=== PATIENT | male | born 1955 | race Caucasian/White ===

== ENCOUNTER → 2016-06-17 09:31 | Outpatient (CLI) | payer MEDICARE, OTHER ==
[2013-03-30 10:21] VITALS: BMI 36.5
[~2016-06-17 09:31] MED LIST: AVODART0.5 MG; CYMBALTA60 MG PO; ENDOCET 10-3251 TAB PO; FLOMAX0.4 MG PO; LIBRAX CAPSULE1 CAP PO; LOPRESSOR50 MG PO; MICARDIS HCT 81 EACH PO; MYSOLINE250 MG PO; NORVASC10 MG PO; PROZAC20 MG PO; SKELAXIN800 MG PO; SOMA350 MG PO; TESSALON PERLE100 MG PO; TOPROL XL50 MG PO; VENTOLIN HFA18 GM INH; VITAMIN D250000 UNIT PO
== END | disposition home or self-care (01) ==
LOC: D.CT 09:31
DX: R91.1 Solitary pulmonary nodule (principal)

== ENCOUNTER 2016-10-31 | Emergency (ER) | payer MEDICARE, OTHER ==
[2013-03-30 10:21] VITALS: BMI 36.5
== END 2016-10-31 01:10 | disposition home or self-care (01) ==
LOC: D.ER
DX: F10.129 Alcohol abuse with intoxication, unspecified (principal); F91.8 Other conduct disorders; F17.200 Nicotine dependence, unspecified, uncomplicated; I10 Essential (primary) hypertension

== ENCOUNTER 2016-11-05 22:21 | Observation (INO) | payer MEDICARE, OTHER ==
[~2016-11-05] VITALS: Ht 172.7 cm; Wt 120.5 kg
[2016-11-05 22:52] LABS: BASOPHILS 0.2 % (0-2); EOSINOPHILS 1.6 % (0-7); HEMATOCRIT 42.7 % (42.0-54.0); HEMOGLOBIN 14.7 g/dL (13.5-17.5); LYMPHOCYTES 40.2 % (15-50); MCH 36.5 pg (26.0-34.0); MCHC 34.4 g/dL (31.0-37.0); MONOCYTES 8.3 % (2-11); NEUTROPHILS 49.7 % (40-80); PLATELET COUNT 140 10x3/uL (130-400); RBC 4.03 10x6/uL (4.20-6.10); RDW 12.8 % (11.5-14.5); WBC 6.3 10x3/uL (4.8-10.8)
[2016-11-05 23:06] LABS: ALBUMIN 3.3 g/dL (3.4-5.0); ALKALINE PHOSPHATASE 79 U/L (46-116); ALT (SGPT) 75 U/L (10-68); BILIRUBIN - TOTAL 0.44 mg/dL (0.2-1.3); CALC OSMOLALITY 277 mosm/kg (275-300); CALCIUM 8.6 mg/dL (8.5-10.1); CARBON DIOXIDE 25.9 mmol/L (21.0-32.0); CHLORIDE - SERUM 103 mmol/L (98-107); CREATININE - SERUM 0.8 mg/dL (0.6-1.3); GLUCOSE 113 mg/dL (74-106); POTASSIUM - SERUM 3.1 mmol/L (3.5-5.1); PROTEIN - SERUM 6.9 g/dL (6.4-8.2); SODIUM 140 mmol/L (136-145); UREA NITROGEN 8 mg/dL (7-18); eGFR NON AFRICAN AMERICAN > 90 mL/min (90-120)
[2016-11-05 23:16] LABS: CKMB 1.1 U/L (0.0-3.6); CREATINE KINASE 111 UL (21-232)
[2016-11-05 23:17] LABS: TROPONIN-I < 0.017 ng/mL (0.000-0.060)
[2016-11-06] MEDS ORDERED: JALYN 0.5-0.41 EACH PO (02:09)
[2016-11-06] MEDS ORDERED: AZOR 10-40 MG T1 TAB PO (02:10)
[2016-11-06] MEDS ORDERED: METOPROLOL TART50 MG PO (02:12)
[2016-11-06 02:16] VITALS: Ht 172.7 cm; Wt 120.5 kg
[2016-11-06 05:15] LABS: BASOPHILS 0.2 % (0-2); EOSINOPHILS 1.6 % (0-7); HEMATOCRIT 42.2 % (42.0-54.0); HEMOGLOBIN 14.5 g/dL (13.5-17.5); LYMPHOCYTES 40.5 % (15-50); MCH 36.5 pg (26.0-34.0); MCHC 34.4 g/dL (31.0-37.0); MCV 106.3 fL (80.0-100.0); MEAN PLATELET VOLUME 10.4 fL (7.4-10.4); MONOCYTES 9.5 % (2-11); NEUTROPHILS 48.2 % (40-80); PLATELET COUNT 128 10x3/uL (130-400); RBC 3.97 10x6/uL (4.20-6.10); RDW 12.8 % (11.5-14.5); WBC 4.3 10x3/uL (4.8-10.8)
[2016-11-06 05:34] LABS: CALC OSMOLALITY 284 mosm/kg (275-300); CALCIUM 8.2 mg/dL (8.5-10.1); CARBON DIOXIDE 28.4 mmol/L (21.0-32.0); CHLORIDE - SERUM 106 mmol/L (98-107); CREATINE KINASE 85 UL (21-232); CREATININE - SERUM 0.7 mg/dL (0.6-1.3); GLUCOSE 100 mg/dL (74-106); POTASSIUM - SERUM 3.3 mmol/L (3.5-5.1); SODIUM 144 mmol/L (136-145); TROPONIN-I < 0.017 ng/mL (0.000-0.060); UREA NITROGEN 7 mg/dL (7-18); eGFR NON AFRICAN AMERICAN > 90 mL/min (90-120)
--- NOTE | 2016-11-06 07:50 | NUR ---
ASSESSMENT COMPLETED. SLEEPING BUT AROUSES EASILY. TELEMERTY SHOWS SR 60. LEFT HAND SL. DENIES ANY NEEDS. CALL LIGHT IN REACH WITH SR UP
[2016-11-06 09:01] VITALS: BP 153/70
--- NOTE | 2016-11-06 10:31 | NUR ---
PATIENT LAYING FLAT WITH EYES CLOSED. RESP ARE EVEN AND NON LABORED, AROUSES EASILY WHEN SPOKEN TO. WILL MONITOR.
--- NOTE | 2016-11-06 11:41 | NUR ---
UP IN HALLWAY. WANTING TO GO HOME. DENIES ANY NEED. TELEMERTY SHOWS SR. WILL MONITOR
[2016-11-06 11:46] VITALS: BP 162/94
--- NOTE | 2016-11-06 14:55 | NUR ---
PT DISCHARGED.INSTRUCTIONS GIVEN. I TOLD PT TO STAY HERE UNTILL HIS CAN PICK HIM UP. HE STATED NO THAT HE WAS LEAVING.i TRIED TO PERSUADE HIM TO STAY BUT AGAIN HE REUSED. NA WALKED PT OUTSIDE AND TRIED TO GET PT TO STAY INSIDE OR SIT ON BENCH IN SHADE AND WAIT FOR HIS FAMILY BUT HE REFUSED. CHARGE NURSE NOTIFIED AND SHE CALLED HOUSE SUPERVISIOR.
== END 2016-11-06 14:50 | disposition home or self-care (01) ==
LOC: D.ER 22:21 → OBSVTIME 23:25 → D.M2 23:25
PROVIDERS: Family Medicine; ADMIT Family Medicine Adult Medicine
DX: R07.9 Chest pain, unspecified (principal); F10.129 Alcohol abuse with intoxication, unspecified; Y90.6 Blood alcohol level of 120-199 mg/100 ml; I10 Essential (primary) hypertension; I73.9 Peripheral vascular disease, unspecified; F41.9 Anxiety disorder, unspecified; F32.9 Major depressive disorder, single episode, unspecified; Z72.0 Tobacco use

== ENCOUNTER 2017-01-15 05:31 | Emergency (ER) | payer MEDICARE, OTHER ==
[2016-11-06 02:16] VITALS: BMI 40.3
[~2017-01-15 05:31] MED LIST changes: +AZOR 10-40 MG T1 TAB PO; +JALYN 0.5-0.41 EACH PO; +METOPROLOL TART50 MG PO
== END 2017-01-15 06:30 | disposition home or self-care (01) ==
LOC: D.ER 05:31
DX: S20.211A Contusion of right front wall of thorax, initial encounter (principal); W19.XXXA Unspecified fall, initial encounter; Y93.89 Activity, other specified; Y92.89 Other specified places as the place of occurrence of the external cause

== ENCOUNTER 2017-06-29 15:28 | Emergency (ER) | payer MEDICARE, OTHER ==
[2016-11-06 02:16] VITALS: BMI 40.3
[2017-06-29 16:42] LABS: ALBUMIN 3.4 g/dL (3.4-5.0); ALKALINE PHOSPHATASE 54 U/L (46-116); ALT (SGPT) 11 U/L (10-68); BILIRUBIN - TOTAL 0.77 mg/dL (0.2-1.3); CALC OSMOLALITY 278 mosm/kg (275-300); CALCIUM 8.2 mg/dL (8.5-10.1); CARBON DIOXIDE 27.7 mmol/L (21.0-32.0); CHLORIDE - SERUM 104 mmol/L (98-107); CREATININE - SERUM 0.7 mg/dL (0.6-1.3); GLUCOSE 82 mg/dL (74-106); POTASSIUM - SERUM 3.8 mmol/L (3.5-5.1); PROTEIN - SERUM 6.6 g/dL (6.4-8.2); SODIUM 141 mmol/L (136-145); UREA NITROGEN 10 mg/dL (7-18); eGFR NON AFRICAN AMERICAN > 90 mL/min (90-120)
[2017-06-29 17:01] LABS: APPEARANCE CLEAR (CLEAR); BILIRUBIN NEGATIVE (NEGATIVE); COLOR STRAW (YELLOW); GLUCOSE NEGATIVE (NEGATIVE); KETONE NEGATIVE (NEGATIVE); NITRITE NEGATIVE (NEGATIVE); PROTEIN NEGATIVE (NEGATIVE); SPECIFIC GRAVITY 1.005 (1.005-1.020); UROBILINOGEN NORMAL (NORMAL)
[2017-06-29 17:02] LABS: BACTERIA FEW /hpf (NONE SEEN); EPITHELIAL CELLS 0-5 /hpf (0-5)
[2017-06-29 17:19] LABS: BASOPHILS 0.3 % (0-2); EOSINOPHILS 0.9 % (0-7); HEMATOCRIT 42.6 % (42.0-54.0); HEMOGLOBIN 14.8 g/dL (13.5-17.5); IMMATURE GRANULOCYTES 0.1 % (0-5); LYMPHOCYTES 25.3 % (15-50); MCH 34.2 pg (26.0-34.0); MCHC 34.7 g/dL (31.0-37.0); MCV 98.4 fL (80.0-100.0); MEAN PLATELET VOLUME 9.7 fL (7.4-10.4); MONOCYTES 9.1 % (2-11); NEUTROPHILS 64.3 % (40-80); PLATELET COUNT 171 10x3/uL (130-400); RBC 4.33 10x6/uL (4.20-6.10); RDW 13.7 % (11.5-14.5)
[2017-06-29 17:22] LABS: UDS - AMPHET NEGATIVE QUAL (NEGATIVE); UDS - BARB NEGATIVE QUAL (NEGATIVE); UDS - BENZO POSITIVE QUAL (NEGATIVE); UDS - COCAINE NEGATIVE QUAL (NEGATIVE); UDS - OPIATE NEGATIVE QUAL (NEGATIVE); UDS - PCP NEGATIVE QUAL (NEGATIVE); UDS - THC NEGATIVE QUAL (NEGATIVE)
== END 2017-06-30 00:15 | disposition home or self-care (01) ==
LOC: D.ER 15:28
PROVIDERS: Emergency Medicine
DX: F33.9 Major depressive disorder, recurrent, unspecified (principal); F10.10 Alcohol abuse, uncomplicated; R45.851 Suicidal ideations; F17.200 Nicotine dependence, unspecified, uncomplicated

== ENCOUNTER 2017-07-23 07:22 | Emergency (ER) | payer MEDICARE, OTHER ==
[2016-11-06 02:16] VITALS: BMI 40.3
[2017-07-23 07:54] LABS: BASOPHILS 0.1 % (0-2); EOSINOPHILS 0.2 % (0-7); HEMATOCRIT 43.9 % (42.0-54.0); HEMOGLOBIN 15.1 g/dL (13.5-17.5); IMMATURE GRANULOCYTES 0.1 % (0-5); MCHC 34.4 g/dL (31.0-37.0); MCV 101.9 fL (80.0-100.0); MEAN PLATELET VOLUME 9.5 fL (7.4-10.4); MONOCYTES 8.2 % (2-11); NEUTROPHILS 81.4 % (40-80); PLATELET COUNT 149 10x3/uL (130-400); RBC 4.31 10x6/uL (4.20-6.10); RDW 14.5 % (11.5-14.5); WBC 11.1 10x3/uL (4.8-10.8)
[2017-07-23 08:10] LABS: ALBUMIN 3.6 g/dL (3.4-5.0); ALKALINE PHOSPHATASE 64 U/L (46-116); ALT (SGPT) 12 U/L (10-68); BILIRUBIN - TOTAL 0.36 mg/dL (0.2-1.3); CALC OSMOLALITY 279 mosm/kg (275-300); CALCIUM 8.5 mg/dL (8.5-10.1); CARBON DIOXIDE 26.6 mmol/L (21.0-32.0); CHLORIDE - SERUM 103 mmol/L (98-107); GLUCOSE 102 mg/dL (74-106); PROTEIN - SERUM 7.5 g/dL (6.4-8.2); SODIUM 140 mmol/L (136-145); UREA NITROGEN 14 mg/dL (7-18); eGFR NON AFRICAN AMERICAN 80 mL/min (90-120)
[2017-07-23 08:12] LABS: ACETAMINOPHEN 23.4 ug/mL (10.0-30.0)
[2017-07-23 10:15] LABS: UDS - AMPHET NEGATIVE QUAL (NEGATIVE); UDS - BARB NEGATIVE QUAL (NEGATIVE); UDS - BENZO POSITIVE QUAL (NEGATIVE); UDS - COCAINE NEGATIVE QUAL (NEGATIVE); UDS - OPIATE POSITIVE QUAL (NEGATIVE); UDS - PCP NEGATIVE QUAL (NEGATIVE); UDS - THC NEGATIVE QUAL (NEGATIVE)
== END 2017-07-23 10:30 | disposition short-term general hospital (02) ==
LOC: D.ER 07:22
PROVIDERS: Family Medicine
DX: T14.91XA Suicide attempt, initial encounter (principal); T39.1X2A Poisoning by 4-Aminophenol derivatives, intentional self-harm, initial encounter; Y92.019 Unspecified place in single-family (private) house as the place of occurrence of the external cause; Y93.89 Activity, other specified; F10.129 Alcohol abuse with intoxication, unspecified

== ENCOUNTER 2018-06-01 09:01 | Inpatient (IN) | payer MEDICARE, OTHER ==
[~2018-06-01] VITALS: Ht 172.7 cm; Wt 111.4 kg
[2018-06-01 10:26] LABS: ALBUMIN 3.1 g/dL (3.4-5.0); ALKALINE PHOSPHATASE 85 U/L (46-116); ALT (SGPT) 28 U/L (10-68); APTT 29.6 SECONDS (22.8-39.4); BILIRUBIN - TOTAL 1.18 mg/dL (0.2-1.3); CALC OSMOLALITY 276 mosm/kg (275-300); CARBON DIOXIDE 26.4 mmol/L (21.0-32.0); CHLORIDE - SERUM 102 mmol/L (98-107); CREATININE - SERUM 0.6 mg/dL (0.6-1.3); GLUCOSE 101 mg/dL (74-106); HEMATOCRIT 39.5 % (42.0-54.0); HEMOGLOBIN 14.1 g/dL (13.5-17.5); INR 1.12 (0.85-1.17); LYMPHOCYTES 16.3 % (15-50); MCH 38.1 pg (26.0-34.0); MCHC 35.7 g/dL (31.0-37.0); MCV 106.8 fL (80.0-100.0); MEAN PLATELET VOLUME 8.8 fL (7.4-10.4); NEUTROPHILS 79.5 % (40-80); PLATELET COUNT 142 10x3/uL (130-400); POTASSIUM - SERUM 3.5 mmol/L (3.5-5.1); PROTEIN - SERUM 6.9 g/dL (6.4-8.2); PROTIME 13.9 SECONDS (11.6-15.0); RDW 14.2 % (11.5-14.5); SODIUM 140 mmol/L (136-145); UREA NITROGEN 8 mg/dL (7-18); WBC 7.6 10x3/uL (4.8-10.8); eGFR NON AFRICAN AMERICAN > 90 mL/min (90-120)
--- NOTE | 2018-06-01 12:09 | MORECARE ---
CASE MANAGEMENT DISCHARGE SUMMARY PATIENT: DANIEL DAVE UNIT: [id number] ADM DATE: 06/01/18 AGE: 63 : 55 SEX: M ROOM/BED: D.2234 AUTHOR: TEAGAN CASTAÑEDA PHYSICIAN: REFERRING PHYSICIAN: DIANE YOUNG MD DATE OF SERVICE: 06/01/18 Discharge Plan Patient Name: DANIEL DAVE Facility: [facility]:[place] : 1955 Planned Disposition: Anticipated Discharge Date: 06/03/18 Discharge Date: Expected LOS: 2 Initial Reviewer: [email or web address] Initial Review Date: 06/01/2018 Generated: 06/01/18 1:09 pm DCP- Discharge Planning Updated by [email or web address]: Ines Mehta on 06/01/18 11:[address] Patient Name: DANIEL DAVE Admission Status: ER Accout number: [id number] Admission Date: 06-01-2018 : 1955 Admission Diagnosis: Attending: DIANE YOUNG Current LOS: 1 Anticipated DC Date: 06-03-2018 Planned Disposition: Primary Insurance: MEDICARE A & B Discharge Planning Comments: CM met with patient and his son to complete initial dc planning assessment. CM educated patient on the CM role and verbal consent given by patient to complete assessment. Patient lives at home with his . He reports he is mostly independent in his care but sometimes needs assistance putting on his socks and dressing. At discharge patient plans to return home if able and feels this is a safe discharge. CM discussed availability of home health, rehab services, and medical equipment. Patient unsure what discharge needs he will have at this time. CM will continue to follow and will assist as needed with dc plans/needs. Stock Sorter: Ines Mehta RN, [facility] DCPIA - Discharge Planning Initial Assessment Updated by [email or web address]: Ines Mehat on 06/01/18 12:06 pm * Is the patient Alert and Oriented? Yes * How many steps to enter\exit or inside your home? one * PCP Dr. Milan Ramirez * Pharmacy [facility] * Preadmission Environment Home with Family * ADLs Partial Dependent * Partial ADLs (Assistance needed) Dressing * Equipment Rolling Walker * List name and contact numbers for known caregivers / representatives who currently or will assist patient after discharge: Dougie Dave - son - [phone] Jacy Dave - - [phone] or [phone] * Verbal permission to speak to the caregivers and representatives has been obtained from the patient. Yes * Community resources currently utilized None * Additional services required to return to the preadmission environment? Yes * Can the patient safely return to the preadmission environment? Yes * Has this patient been hospitalized within the prior 30 days at any hospital? No Patient Name: DANIEL DAVE Page 39610 at 1209 All edits/amendments must be made on the electronic document DICTATION DATE: 06/01/181207 LAYDOWN MACHINE OPERATOR: JORDI 06/01/181207 RPT#: [id number] DC DATE: STATUS: ADM IN [facility] [address] [place] [address] END OF REPORT
[2018-06-01 12:40] VITALS: BP 166/79
[2018-06-01 15:34] VITALS: BP 143/61; Ht 172.7 cm; Wt 111.4 kg
[2018-06-01 16:26] VITALS: BP 143/61
[2018-06-01 20:29] VITALS: BP 145/77
[2018-06-02] VITALS (7 sets, daily range): BP systolic 133–156; BP diastolic 52–90
[2018-06-02 05:33] LABS: ALBUMIN 2.6 g/dL (3.4-5.0); ALKALINE PHOSPHATASE 74 U/L (46-116); BILIRUBIN - TOTAL 1.25 mg/dL (0.2-1.3); CALC OSMOLALITY 270 mosm/kg (275-300); CALCIUM 7.2 mg/dL (8.5-10.1); CARBON DIOXIDE 28.2 mmol/L (21.0-32.0); CHLORIDE - SERUM 101 mmol/L (98-107); GLUCOSE 92 mg/dL (74-106); MAGNESIUM - SERUM 1.9 mg/dL (1.8-2.4); PROTEIN - SERUM 5.8 g/dL (6.4-8.2); SODIUM 136 mmol/L (136-145); UREA NITROGEN 10 mg/dL (7-18)
[2018-06-02 05:37] LABS: BASOPHILS 0 % (0-2); HEMATOCRIT 35.8 % (42.0-54.0); HEMOGLOBIN 12.5 g/dL (13.5-17.5); LYMPHOCYTES 17.4 % (15-50); MCH 37.5 pg (26.0-34.0); MCHC 34.9 g/dL (31.0-37.0); MCV 107.5 fL (80.0-100.0); MEAN PLATELET VOLUME 9.8 fL (7.4-10.4); MONOCYTES 6.3 % (2-11); NEUTROPHILS 75.3 % (40-80); PLATELET COUNT 133 10x3/uL (130-400); RBC 3.33 10x6/uL (4.20-6.10); RDW 13.9 % (11.5-14.5)
[2018-06-02 05:41] LABS: ALT (SGPT) 20 U/L (10-68); CREATININE - SERUM 0.8 mg/dL (0.6-1.3); eGFR NON AFRICAN AMERICAN > 90 mL/min (90-120)
[2018-06-02 05:56] LABS: WBC 4.8 10x3/uL (4.8-10.8)
[2018-06-03 06:33] LABS: BASOPHILS 0 % (0-2); EOSINOPHILS 0.1 % (0-7); HEMOGLOBIN 12.1 g/dL (13.5-17.5); IMMATURE GRANULOCYTES 0.1 % (0-5); LYMPHOCYTES 7.9 % (15-50); MCH 37.2 pg (26.0-34.0); MCHC 34.6 g/dL (31.0-37.0); MCV 107.7 fL (80.0-100.0); MEAN PLATELET VOLUME 9.6 fL (7.4-10.4); MONOCYTES 3.6 % (2-11); NEUTROPHILS 88.3 % (40-80); PLATELET COUNT 142 10x3/uL (130-400); RBC 3.25 10x6/uL (4.20-6.10); RDW 13.8 % (11.5-14.5)
[2018-06-03 07:11] LABS: ALBUMIN 2.4 g/dL (3.4-5.0); ALKALINE PHOSPHATASE 75 U/L (46-116); ALT (SGPT) 17 U/L (10-68); BILIRUBIN - TOTAL 0.85 mg/dL (0.2-1.3); CALCIUM 7.2 mg/dL (8.5-10.1); CARBON DIOXIDE 26.5 mmol/L (21.0-32.0); CHLORIDE - SERUM 101 mmol/L (98-107); GLUCOSE 117 mg/dL (74-106); MAGNESIUM - SERUM 2.1 mg/dL (1.8-2.4); POTASSIUM - SERUM 3.3 mmol/L (3.5-5.1); PROTEIN - SERUM 5.9 g/dL (6.4-8.2); SODIUM 136 mmol/L (136-145)
[2018-06-03 07:13] LABS: CALC OSMOLALITY 270 mosm/kg (275-300); CREATININE - SERUM 0.5 mg/dL (0.6-1.3); UREA NITROGEN 6 mg/dL (7-18); eGFR NON AFRICAN AMERICAN > 90 mL/min (90-120)
--- NOTE | 2018-06-03 08:40 | OP ---
PATIENT NAME: DANIEL DAVE MEDICAL RECORD: [id number] :[birth year] LOCATION:D.MS [id number] ADMISSION DATE:06/01/18 SURGEON: MONTRELL PATEL DO DATE OF OPERATION: 06/02/2018 PROCEDURE PERFORMED: Left distal fibula open reduction internal fixation. PREOPERATIVE DIAGNOSIS: Displaced left distal fibula fracture, ankle fracture. POSTOPERATIVE DIAGNOSES: Displaced left distal fibula fracture, ankle fracture. INDICATIONS: Mr. Dave is a 63-year-old alcoholic male who fell a couple of days ago, was taken to the ER, seemed to have a displaced distal fibula fracture. He was unable to bear weight and he got admitted. He admits to drinking all the whiskey every day he says and falls frequently. I explained to him that this ankle would not heal, well on its own and it is already displaced and we would have to fix. He was aware of the risks and benefits of the procedure including infection, bleeding, damage to nerves and vessels, need for further surgery, and he fell again need for revision. He is aware of that. Consented to the procedure. SURGEON: Montrell Patel DO DESCRIPTION OF THE PROCEDURE: The patient was given a block by anesthesia in the preoperative area and taken to the operative suite, laid in supine position, given 2 grams Ancef preoperatively. A timeout was performed and everyone was in agreement with the correct side, site, patient, and procedure. The left lower extremity was then prepped and draped in a sterile fashion. After the time out had been performed, the left lower extremity was exsanguinated with an Esmarch and the tourniquet was inflated to 350 mmHg and was up for 35 minutes throughout the procedure. The incision then began over the fibula in the lateral side and a careful dissection was made down to it. Fracture was exposed. There was quite a bit large hematoma there. This was removed with a curette and a reduction maneuver was made. Once the reduction was adequate, Arthrex locking plate was placed on the fibula, placed into position, and this was confirmed in good position on AP and lateral. First distal locking screws were placed and then locking screws were placed proximally holding the reduction nicely. It did have a fracture fixation, did put a TightRope through, this was done under fluoroscopy as well as to cinch down due to the fact that he may fall again. This had good fixation and ankle was very stable stressed on exam and did not move. The tourniquet was then let down and any bleeding was coagulated. He did ooze quite a bit and there were no vessels, but it was oozing. The skin was then closed with 2-0 Vicryl in inverted interrupted fashion and a ZipLine was placed on the skin, Adaptic, 4 x 4s and ABD were then placed over the incision site and then an ABD was placed on the heel. Then, a 2 x 2 dressing of Kerlix and Webril was placed on the patient. A posterior splint was placed on him and it was secured in place with a 6-inch and 4-inch Yang wrap then held while it hardened. He was then awakened and taken to recovery in stable condition. Blood loss approximately 100 mL. COMPLICATIONS: None. TRANSINT:[id number] Voice Confirmation ID: [id number] DOCUMENT ID: [id number] OPERATIVE REPORT [id number] DANIEL DAVE MICHAEL D, DO at 0840 CC: [id number] DICTATION DATE: 06/02/181951 ARC AIR OPERATOR: 06/03/18 0220 ADM IN [facility] [address] [place] [address]
[2018-06-03 09:00] VITALS: BP 173/88
[2018-06-03] MEDS ORDERED: OXYCODONE HCL5 M1 PO (10:34)
[2018-06-03] MEDS ORDERED: ASPIRIN81 MG PO (10:59)
[2018-06-03 12:00] VITALS: BP 155/82
--- NOTE | 2018-06-03 15:01 | MORECARE ---
CASE MANAGEMENT DISCHARGE SUMMARY PATIENT: DANIEL DAVE UNIT: [id number] ADM DATE: 06/01/18 AGE: 63 : 55 SEX: M ROOM/BED: D.2234 AUTHOR: TEAGAN CASTAÑEDA PHYSICIAN: REFERRING PHYSICIAN: DIANE YOUNG MD DATE OF SERVICE: 06/03/18 Discharge Plan Patient Name: DANIEL DAVE Facility: [facility]:[place] : 1955 Planned Disposition: Anticipated Discharge Date: 06/03/18 Discharge Date: Expected LOS: 2 Initial Reviewer: [email or web address] Initial Review Date: 06/01/2018 Generated: 06/03/18 4:01 pm Comments DCP- Discharge Planning Updated by [email or web address]: Zoe Camp on 06/03/18 1:[address] LATE ENTRY 1215 CM NOTIFIED PATIENT'S STATES SHE CANNOT MANAGE HIM AT HOME. CM ADVISED NURSE TO NOTIFY MD. ?? REHAB . WILL NEED OT AND PT CONSULTS W/ REHAB PRESCREENING. CONCERN REGARDING POSSIBLE DT'S. CONTINUE DT PRECAUTION. AWAIT PRESCREENING. DCP- Discharge Planning Updated by [email or web address]: Ines Mehta on 06/01/18 11:[address] Patient Name: DANIEL DAVE Admission Status: ER Accout number: [id number] Admission Date: 06-01-2018 : 1955 Admission Diagnosis: Attending: DIANE YOUNG Current LOS: 1 Anticipated DC Date: 06-03-2018 Planned Disposition: Primary Insurance: MEDICARE A & B Discharge Planning Comments: CM met with patient and his son to complete initial dc planning assessment. CM educated patient on the CM role and verbal consent given by patient to complete assessment. Patient lives at home with his . He reports he is mostly independent in his care but sometimes needs assistance putting on his socks and dressing. At discharge patient plans to return home if able and feels this is a safe discharge. CM discussed availability of home health, rehab services, and medical equipment. Patient unsure what discharge needs he will have at this time. CM will continue to follow and will assist as needed with dc plans/needs. Ict Security Specialist: Ines Mehta RN, [facility] DCPIA - Discharge Planning Initial Assessment Updated by [email or web address]: Ines Mehta on 06/01/18 12:06 pm * Is the patient Alert and Oriented? Yes * How many steps to enter\exit or inside your home? one * PCP Dr. Milan Ramirez * Pharmacy [facility] * Preadmission Environment Home with Family * ADLs Partial Dependent * Partial ADLs (Assistance needed) Dressing * Equipment Rolling Walker * List name and contact numbers for known caregivers / representatives who currently or will assist patient after discharge: Dougie Dave - son - [phone] Jacy Dave - - [phone] or [phone] * Verbal permission to speak to the caregivers and representatives has been obtained from the patient. Yes * Community resources currently utilized None * Additional services required to return to the preadmission environment? Yes * Can the patient safely return to the preadmission environment? Yes * Has this patient been hospitalized within the prior 30 days at any hospital? No Last DP export: 06/01/18 11:09 a Patient Name: DANIEL DAVE Page [phone] at 1501 All edits/amendments must be made on the electronic document DICTATION DATE: 06/03/18 1500 BRAKE LINING CURER: JORDI 06/03/18 1500 RPT#: [id number] DC DATE: STATUS: ADM IN [facility] [address] [place] [address] END OF REPORT
[2018-06-03 16:00] VITALS: BP 142/84
[2018-06-03 20:04] VITALS: BP 165/86
== END 2018-06-03 21:00 | DRG 493 ==
LOC: D.ER 09:01 → D.MS 10:34 → D.EDHOLD 10:34 → D.MS 10:36
PROVIDERS: Family Medicine; Orthopaedic Surgery; ADMIT Emergency Medicine
PROC: 0QSH04Z Reposition Left Tibia with Internal Fixation Device, Open Approach (ICD-10-PCS; principal; 2018-06-02 13:45)
DX: S82.302A Unspecified fracture of lower end of left tibia, initial encounter for closed fracture (principal); F17.213 Nicotine dependence, cigarettes, with withdrawal; I10 Essential (primary) hypertension; I70.209 Unspecified atherosclerosis of native arteries of extremities, unspecified extremity; F10.229 Alcohol dependence with intoxication, unspecified

== ENCOUNTER 2018-06-03 19:38 | Inpatient (IN) | payer MEDICARE, OTHER ==
[~2018-06-03] VITALS: Ht 172.7 cm; Wt 111.1 kg
[~2018-06-03 19:38] MED LIST changes: +ASPIRIN81 MG PO; +OXYCODONE HCL5 M1 PO
[2018-06-03 20:00] VITALS: BP 162/83
--- NOTE | 2018-06-03 21:10 | NUR ---
PT ARRIVED TO UNIT VIA BED PROPELLED BY 2 CNAS FROM MED SURG. ADMITTED TO ROOM [address] VALDEZ SERVICES. PT ORIENTED TO ROOM AND UNIT RULES WITH VERBAL UNDERSTANDING VOICED. VSS. LEFT LOWER EXT. HAS A LARGE BULKY SURGICAL DRESSING ON IT. NO DRAINAGE NOTED. SCD CONNECTED TO RLE. IV INFUSING TO RFA WITHOUT DIFFICULTY. NO REDNESS OR EDEMA NOTED AT THE INSERTION SITE. ADMIT PAPERS SIGNED. SR'S ARE UP X 3 IN BED. CALL LIGHT AND BEDSIDE TABLE ARE WITHIN EASY REACH.
[2018-06-03 21:54] VITALS: BP 162/83; BMI 37.3
--- NOTE | 2018-06-03 22:39 | NUR ---
PT IS RESTING IN BED WATCHING TV. NO NEEDS VOICED.
--- NOTE | 2018-06-04 01:04 | NUR ---
PT IS RESTING QUIETLY IN BED WITH EYES CLOSED. RESPS ARE EVEN AND UNLABORED. NO ACUTE DISTRESS NOTED.
--- NOTE | 2018-06-04 04:51 | NUR ---
PT RESTING QUIETLY IN BED WITH EYES CLOSED.
[2018-06-04 06:06] LABS: BASOPHILS 0.2 % (0-2); EOSINOPHILS 1.4 % (0-7); HEMATOCRIT 36.4 % (42.0-54.0); HEMOGLOBIN 12.3 g/dL (13.5-17.5); IMMATURE GRANULOCYTES 0.2 % (0-5); LYMPHOCYTES 21.2 % (15-50); MCHC 33.8 g/dL (31.0-37.0); MCV 109.6 fL (80.0-100.0); MEAN PLATELET VOLUME 9.8 fL (7.4-10.4); PLATELET COUNT 134 10x3/uL (130-400); RBC 3.32 10x6/uL (4.20-6.10); RDW 13.9 % (11.5-14.5); WBC 6.2 10x3/uL (4.8-10.8)
[2018-06-04 06:46] LABS: CALC OSMOLALITY 280 mosm/kg (275-300); CALCIUM 7.7 mg/dL (8.5-10.1); CHLORIDE - SERUM 105 mmol/L (98-107); CREATININE - SERUM 0.6 mg/dL (0.6-1.3); GLUCOSE 91 mg/dL (74-106); SODIUM 142 mmol/L (136-145); UREA NITROGEN 6 mg/dL (7-18); eGFR NON AFRICAN AMERICAN > 90 mL/min (90-120)
[2018-06-04 06:52] LABS: POTASSIUM - SERUM 2.9 mmol/L (3.5-5.1)
[2018-06-04 08:00] VITALS: BP 175/86
--- NOTE | 2018-06-04 08:00 | NUR ---
SHIFT ASSMT COMPLETED.DENIES NEEDS.USES URINAL AT BEDSIDE.DRSG TO LEFT LOWER LEG INTACT.SCD ON RLE.BREAKFAST GIVEN.CL IN REACH.MEAL PREP PROVIDED.
--- NOTE | 2018-06-04 12:00 | NUR ---
SITTING UP IN BED FOR LUNCH.CL IN REACH.
[2018-06-04 19:22] VITALS: BP 159/83
--- NOTE | 2018-06-04 19:42 | NUR ---
PATIENT IS RESTING IN HIS BED. VITALS SIGNS ARE STABLE. REQUESTING TO GET OUT OF BED. INFORMED HE MUST BE EVALUATED BY PT FIRST. VERBALIZES UNDERSTANDING. BED IS DOWN LOW WITH SIDE RAILS UP X2. CALL LIGHT IS IN REACH.
--- NOTE | 2018-06-04 21:11 | NUR ---
PATIENT IS RESTING IN HIS BED. BED IS DOWN LOW WITH SIDE RAILS UP X2. CALL LIGHT IS IN REACH.
--- NOTE | 2018-06-04 21:11 | NUR ---
PATIENT IS RESTING IN HER BED. DENIES [place] NEEDS. BED IS DOWN LOW WITH SIDE RAILS UP X2. BED ALARM ACTIVATED AND CALL LIGHT IN REACH.
--- NOTE | 2018-06-05 00:03 | NUR ---
PATIENT IS SLEEPING. BED IS DOWN LOW WITH SIDE RAILS UP X2. CALL LIGHT IS IN REACH.
--- NOTE | 2018-06-05 04:07 | NUR ---
PATIENT RESTING IN BED. STATES HIS PAIN LEVEL IS COMING DOWN. BED ID DOWN LOW WITH SIDE RAILS UP X2. CALL LIGHT IS IN REACH.
--- NOTE | 2018-06-05 07:30 | NUR ---
PT SITTING UP IN BED BREAKFAST DELIEVERED TO ROOM. CL IN REACH. PT DENIES NEEDS OR PAIN. BED IN LOW POSITION SIDE RAILS X2. RESP EVEN AND UNLABORED. WILL CONTINUE TO MONITOR.
[2018-06-05 07:32] LABS: BASOPHILS 0.2 % (0-2); EOSINOPHILS 2.3 % (0-7); HEMATOCRIT 34.5 % (42.0-54.0); HEMOGLOBIN 11.8 g/dL (13.5-17.5); IMMATURE GRANULOCYTES 0.2 % (0-5); LYMPHOCYTES 24.8 % (15-50); MCH 36.9 pg (26.0-34.0); MCHC 34.2 g/dL (31.0-37.0); MCV 107.8 fL (80.0-100.0); MEAN PLATELET VOLUME 9.6 fL (7.4-10.4); MONOCYTES 9.7 % (2-11); NEUTROPHILS 62.8 % (40-80); RDW 13.6 % (11.5-14.5); WBC 6.1 10x3/uL (4.8-10.8)
--- NOTE | 2018-06-05 07:43 | NUR ---
RESTING IN BED. NO DISTRESS. NO CHANGE IN ASSESSMENT.
[2018-06-05 07:50] LABS: CALC OSMOLALITY 271 mosm/kg (275-300); CALCIUM 7.6 mg/dL (8.5-10.1); CARBON DIOXIDE 28.3 mmol/L (21.0-32.0); CHLORIDE - SERUM 102 mmol/L (98-107); CREATININE - SERUM 0.7 mg/dL (0.6-1.3); GLUCOSE 93 mg/dL (74-106); POTASSIUM - SERUM 3.1 mmol/L (3.5-5.1); SODIUM 137 mmol/L (136-145); eGFR NON AFRICAN AMERICAN > 90 mL/min (90-120)
[2018-06-05 07:54] LABS: PLATELET COUNT 163 10x3/uL (130-400); UREA NITROGEN 8 mg/dL (7-18)
[2018-06-05 08:00] VITALS: BP 149/85
--- NOTE | 2018-06-05 08:50 | NUR ---
PT LYING IN BED. CL IN REACH. PT DENIES NEEDS OR PAIN. BED IN LOW POSITION. SIDE RAILS X2. BREAKFAST DELIEVERED IN ROOM. WILL CONTINUE TO MONITOR. RESP EVEN AND UNLABORED.
[2018-06-05 12:17] VITALS: BMI 37.2
--- NOTE | 2018-06-05 12:35 | NUR ---
PT SITTING UP IN WHEELCHAIR. CL IN REACH. PT DENIES NEEDS OR PAIN. LEFT LEG ELEVATED ON BED. PT DID HAVE BM ACCIDENT IN BED. STATED HE COULDNT GET UP DUE TO LEG PUMP BEING ATTACHED TO HIS LEG. PT WAS CLEANED UP BEFORE BEING PUT IN WHEELCHAIR. WILL CONTINUE TO MONITOR.
--- NOTE | 2018-06-05 16:33 | NUR ---
PT LYING IN BED RESTING QUIETLY. CL IN REACH. PT DENIES NEEDS OR PAIN. BED IN LOW POSITION. SIDE RAILS X2. BED ALARM ON. TM
--- NOTE | 2018-06-05 17:46 | NUR ---
PT RESTING QUIETLY. CL IN REACH. NO SIGNS OF DISTRESS OR PAIN. WCTM
--- NOTE | 2018-06-05 18:13 | NUR ---
WENT INTO PT ROOM DUE TO PT YELLING AND ASSISTED TO BATHROOM. PT WAS MAKING INAPPROPRIATE COMMENTS. ANOTHER RN NURSE WAS IN ROOM AT THIS TIME WITH THIS NURSE.
--- NOTE | 2018-06-05 18:39 | NUR ---
REMOVED PTS IV DUE TO NO MORE IV FLUIDS REQUIRED OR ANY IV ANTIBIOTICS.
--- NOTE | 2018-06-05 18:39 | NUR ---
PT TOLERATED IV REMOVING. CATH INTACT. MINIMAL BLEEDING. BANDAID APPLIED.
[2018-06-05 19:00] VITALS: BP 143/69
--- NOTE | 2018-06-05 19:02 | NUR ---
PATIENT IS RESTING IN HIS BED. BED IS DOWN LOW WITH SIDE RAILS UP X2. CALL LIGHT IS IN REACH.
--- NOTE | 2018-06-05 19:02 | NUR ---
PATIENT IS RESTING IN HER BED. DENIES ANY NEEDS. BED IS DOWN LOW WITH SIDE RAILS UP X2. BED ALARM ACTIVATED AND CALL LIGHT IN REACH.
--- NOTE | 2018-06-05 21:20 | NUR ---
PATIENT IS RESTING. VITALS SIGNS ARE STABLE. BED IS DOWN LOW WITH SIDE RAILS ARE X2. CALL LIGHT IS IN REACH.
--- NOTE | 2018-06-05 21:20 | NUR ---
PATIENT IS RESTING IN HIS BED. VITAL SIGNS ARE STABLE. BED IS DOWN LOW WITH SIDE RAILS UP X2. BED ALARM IS ACTIVATED. CALL LIGHT IS IN REACH.
--- NOTE | 2018-06-06 00:05 | NUR ---
PATIENT MEDICATED FOR C/O LT ANKLE/LOWER LEG PAIN. BED IS DOWN LOW. BED ALARM ACTIVATED. CALL LIGHT IN REACH.
--- NOTE | 2018-06-06 04:04 | NUR ---
PATIENT IS SLEEPING. BED IS DOWN LOW WITH SIDE RAILS UP X2. BED ALARM ACTIVATED AND CALL LIGHT IN REACH.
--- NOTE | 2018-06-06 07:23 | NUR ---
PT RESTING QUIETLY. CL IN REACH. NO SIGNS OF DISTRESS OR PAIN. BED IN LOW POSITION. SIDE RAILS X2. RESP EVEN AND UNLABORED. WCTM
[2018-06-06 07:33] VITALS: BP 149/77
[2018-06-06 10:24] LABS: FOLATE (FOLIC ACID) - SERUM 5.9 ng/mL (>3.0)
--- NOTE | 2018-06-06 11:05 | NUR ---
PT IN THERAPY. DENIES NEEDS
--- NOTE | 2018-06-06 14:44 | NUR ---
PT LYING IN BED. CL IN REACH. PT DENIES NEEDS OR PAIN. WCTM
--- NOTE | 2018-06-06 18:13 | NUR ---
PT SITTING UP IN WHEELCHAIR. CL IN REACH. PT DENIES NEEDS OR PAIN.
--- NOTE | 2018-06-06 19:30 | NUR ---
PATIENT RECEIVED SITTING UP IN BED WATCHING TV. PATIENT ASSESSMENT & VITAL SIGNS DONE. PATIENT BED LOW. ALARM ON. URINAL WITHIN REACH. WILL CONTINUE TO MONITOR.
[2018-06-06 20:01] VITALS: BP 130/69
--- NOTE | 2018-06-07 00:01 | NUR ---
PT ASLEEP NO NEEDS NOTED FLUIDS AND CALL LIGHT WITHIN REACH
--- NOTE | 2018-06-07 01:26 | NUR ---
PATIENT EYES CLOSED. RESPIRATIONS 18 & EVEN. BED LOW. ALARM ON. CALL LIGHT WITHIN REACH. WILL CONTINUE TO MONITOR.
[2018-06-07 06:53] LABS: CALC OSMOLALITY 276 mosm/kg (275-300); CALCIUM 8.1 mg/dL (8.5-10.1); CHLORIDE - SERUM 106 mmol/L (98-107); CREATININE - SERUM 0.7 mg/dL (0.6-1.3); GLUCOSE 98 mg/dL (74-106); POTASSIUM - SERUM 3.5 mmol/L (3.5-5.1); SODIUM 139 mmol/L (136-145); UREA NITROGEN 10 mg/dL (7-18); eGFR NON AFRICAN AMERICAN > 90 mL/min (90-120)
[2018-06-07 06:59] LABS: BASOPHILS 0.2 % (0-2); EOSINOPHILS 3.3 % (0-7); HEMATOCRIT 33.1 % (42.0-54.0); HEMOGLOBIN 11.3 g/dL (13.5-17.5); MCH 36.7 pg (26.0-34.0); MCHC 34.1 g/dL (31.0-37.0); MCV 107.5 fL (80.0-100.0); MEAN PLATELET VOLUME 9.8 fL (7.4-10.4); NEUTROPHILS 65.5 % (40-80); PLATELET COUNT 187 10x3/uL (130-400); RBC 3.08 10x6/uL (4.20-6.10); RDW 13.7 % (11.5-14.5); WBC 5.2 10x3/uL (4.8-10.8)
[2018-06-07 08:00] VITALS: BP 158/82
--- NOTE | 2018-06-07 08:00 | NUR ---
SHIFT ASSMT COMPLETED.DENIES NEEDS.TALKATIVE.BREAKFAST GIVEN.CL IN REACH.
[2018-06-07 10:02] VITALS: Ht 172.7 cm; Wt 111.1 kg
--- NOTE | 2018-06-07 12:00 | NUR ---
SITTING UP EATING LUNCH.CL IN REACH.
--- NOTE | 2018-06-07 16:10 | NUR ---
PATIENT ADMITTED TO REHAB FROM ACUTE FLOOR. DR. BLANCO IS HIS PCP AND DME AT HOME IS A ROLLING WALKER. IF UNABLE TO DISCHARGE HOME PATIENT WOULD LIKE REFERRAL TO [facility].WILL CONTINUE TO FOLLOW WITH PATIENT.
--- NOTE | 2018-06-07 16:41 | RHP ---
PATIENT: DANIEL CARREON MEDICAL RECORD: [id number] ACCOUNT: [id number] LOCATION:[facility]1115 : 55 ADMISSION DATE: 06/03/18 REHABILITATION HISTORY AND PHYSICAL EXAMINATION POST ADMISSION PHYSICIAN EXAMINATION ADMITTING DIAGNOSIS: Distal left fibular fracture. HISTORY OF PRESENT ILLNESS: The patient was admitted through the ER secondary to a fall and a distal left fibular fracture on 06/02/18. He is a 63-year-old gentleman who presents status post falling 3 times. He is an alcoholic and continues to smoke. He suffered a displaced left distal fibular fracture. He has got a history of bladder cancer, hypertension, peripheral vascular disease, chronic pain, prostate disease, depression, and anxiety. He is admitted for orthopedic management. He was admitted through the ER on 06/01/18 for the recent fall and ongoing pain in his ankle. The orthopedics was consulted. They decided that they would go to surgery on 06/02/18 for an ORIF of this distal fracture. He tolerated the procedure well. He continues to be on DVT and DT precautions at this time secondary to his alcoholism. He gets a shot of whiskey with every meal along with a nicotine patch. He has been on telemetry for cardiac arrhythmias related to his pain and alcohol withdrawals. He is ordered aggressive PT and OT with nonweightbearing status on the affected extremity at this time. He is very weak. He has had numerous falls at home. His alcoholism makes him more impulsive and more likely to fall, with peripheral vascular disease. It can also cause an increased chance of DVT. With his history of hypertension, his cardiac function needs to be monitored closely. His was just concerned that she would not be able to take him home at this time. She is an elderly lady that has been assisting him; but with increasing falls, she is unable to do so at this time. He is on an increased amount of pain medicine, which also decreases his mobility and makes him at risk for fall. Hopefully, we can get him out of this current condition, get him back to his prior level of functioning, and return home with some type of treatment options at that time. COMORBIDITIES: Include COPD, peripheral vascular disease, hypertension, arthritis, chronic back pain, T12 fracture, ankle and rib fractures, anxiety, depression, alcoholism, history of bladder cancer, and nicotine dependence. PAST MEDICAL HISTORY: Significant for chronic back pain. He has got history of depression, alcohol use, history of bladder cancer, nicotine dependence, peripheral vascular disease, hypertension, and arthritis. PAST SURGICAL HISTORY: Includes an ORIF of the left distal fibula. He has had bunionectomy, umbilical hernia repair, and T12 fusion. ALLERGIES: No known drug allergies. CURRENT MEDICATIONS: Include Giuliana he takes one p.o. at bedtime, metoprolol 50 mg daily, Cymbalta 60 mg daily, nicotine patch to apply daily. He is on alcohol 30 cc t.i.d. with meals; and OxyIR 10 mg q. 4 hours p.r.n. and that is for pain level of 6-10, he is on 5 for pain level lower than that. He is on Zofran 4 mg q. 4 hours p.r.n. nausea and vomiting and lorazepam 1 mg q. 2-4 hours as needed for DTs. He is on Senokot daily, Librium 25 mg t.i.d., aspirin chewable 81 mg b.i.d., and polyethylene glycol 17 grams in 8 ounces of water daily. HABITS: He does have history of alcohol and tobacco use. HISTORY AND PHYSICAL [id number] DANIEL CARREON FAMILY HISTORY: Noncontributory. SOCIAL HISTORY: The patient hopes to return back home with his and get back to his prior level of functioning. REVIEW OF SYSTEMS: GENERAL: He does complain of weakness and fatigue. HEENT: Denies cold, cough, or congestion. CARDIOVASCULAR: He denies chest pain. PHYSICAL EXAMINATION: VITAL SIGNS: Stable. Afebrile. His blood pressure is slightly elevated, systolic. His pulse is normal. GENERAL: An obese gentleman, in no acute distress on exam. HEENT: Normocephalic and atraumatic. Mucosa moist. NECK: Supple. No lymphadenopathy. LUNGS: Clear at this time. HEART: Regular rate and rhythm. No murmurs, rubs, or gallops. ABDOMEN: Benign. EXTREMITIES: No clubbing, cyanosis, or edema. He does have some noted postsurgical changes, but appears normal. NEUROLOGIC: He seems mainly intact other than weakness. LABORATORY DATA: White count is 6.2, H&H of 12.3 and 36.4, and platelet count is noted to be 134. His MCV is 109.6, consistent with his alcohol use. Sodium 142, potassium is 2.9, BUN and creatinine of 6 and 0.6, and blood sugar is noted to be 91. ASSESSMENT: This is a 63-year-old gentleman admitted to rehab with working diagnosis of left distal fibular fracture complicated by alcohol and nicotine dependence. The patient has potential to make improvement. We will institute the following multidisciplinary therapies including, but not limited to, physical, occupational, respiratory, speech, nutritional services, prosthetics, and orthotics. Given his complex medical condition and risk for more complications, rehabilitation services cannot be provided at a lower level of care such as a skilled nurse facility. PLAN: 1. Admit to [facility] for inpatient therapy to include the following disciplines; A. Physical therapy to improve gait, all transfer skills, and bed mobility to modified independent level. B. Occupational therapy to improve activities of daily living to a modified independent level. C. Case management to assist with discharge planning and placement options. D. Nutrition to assist with nutritional needs. E. Rehabilitation nursing to assist in monitoring the patient's underlying medical conditions and to assist with any type of bowel or bladder management. 2. The patient's current medication and medical care will be continued. 3. The patient will be placed on standard fall precautions. 4. The patient's estimated length of stay is approximately 7-10 days. 5. We will discuss the patient during care team staff meeting this week. We will watch for any signs of DTs and alcohol withdrawal. We will check folate and B12 levels on him and probably put him on a multivitamin with both. I will HISTORY AND PHYSICAL [id number] DANIEL CARREON follow up in the a.m. TRANSINT:[id number] Voice Confirmation ID: [id number] DOCUMENT ID: [id number] JUAN DIEGO notes whether there has been none or any medical/functional change since admission: - No change since preadmission screen. JUAN DIEGO attests patient continues to be appropriate for IRF: - Contiues to be appropriate. SAL BLANCO MD at 1641 CC: [id number] DICTATION DATE: 06/04/181818 ANIMATION PRODUCER: 06/04/181916 ADM IN [facility] [address] [place] [address]
--- NOTE | 2018-06-07 19:02 | NUR ---
PATIENT IS RESTING IN HIS BED. BED IS DOWN LOW WITH SIDE RAILS UP X2. BED ALARM ACTIVATED AND CALL LIGHT IN REACH.
--- NOTE | 2018-06-07 21:06 | NUR ---
PATIENT C/O NOT BEING ABLE TO SLEEP AT NIGHT. MEDICATED WITH ATIVAN PO. VITAL SIGNS ARE STABLE. BED IS DOWN LOW WITH SIDE RAILS UP X2. BED ALARM ACTIVATED AND CALL LIGHT IN REACH.
--- NOTE | 2018-06-08 00:15 | NUR ---
PATIENT IS SLEEPING. BED IS DOWN LOW WITH SIDE RAILS UP X2. CALL LIGHT IS IN REACH. BED ALARM IS ACTIVATED.
[2018-06-08 01:19] VITALS: BP 165/98
--- NOTE | 2018-06-08 02:15 | NUR ---
PATIENTS BED ALARM WENT OFF. NIGHT BAKER RESPONDED AND FOUND PATIENT SITTING IN THE FLOOR. PATIENT ASSISTED BACK TO BED. STATES HE DOES NOT KNOW WHAT HE WAS TRYING TO DO. STATES HE LANDED ON HIS BOTTOM. NO SIGNS OF INJURY.
[2018-06-08 03:50] VITALS: BP 148/79
--- NOTE | 2018-06-08 04:15 | NUR ---
PATIENT IS A&O. REQUESTING URINAL. NEURO CHECK COMPLETE. BED IS DOWN LOW WITH SIDE RAILS UP X2. CALL LIGHT IS IN REACH. BED ALARM IS ACTIVATED.
[2018-06-08 08:00] VITALS: BP 170/90
--- NOTE | 2018-06-08 08:00 | NUR ---
SHIFT ASSMT COMPLETED.
--- NOTE | 2018-06-08 11:30 | NUR ---
TOPHER.TAKEN BACK TO ROOM FROM THERAPY.PLACED IN BED WITH MAX ASSIST.CL IN REACH.SON AT BEDSIDE.HAS BEEN UP SINCE BANDOLEER STRAIGHTENER STAMPER.VSS.HAD C/O DIZZIENESS WHEN ASKED IF FEELS FAINT HE REPORTED NO AND STATES THIS IS NOT NEW THAT HE HAS DONE THIS A LONG TIME AND SON VERIFIED THAT THIS IS NOT NEW.
--- NOTE | 2018-06-08 14:00 | NUR ---
AWAKENED FROM NAP NEEDING TO VOID;PUT LEGS OVER BED AND THERAPY KEPT FROM FALLING OOB.ALARMS ON ASSISTED TO HELP WITH URINAL AND VOIDED ALREADY.CLEANED UP AND MOVED CLOSER TO FRONT TO HEAR BETTER;TO ROOM 1110.ALARM ON CL IN REACH.SITTING UP IN WC.
--- NOTE | 2018-06-08 16:36 | NUR ---
PATIENT UP IN W/C SPEECH VERY THICK TONGUED. SKIN W/D TO TOUCH, COLOR PINK,RESP. REGULAR AND EVEN AT 20. DENIES ANY C/O PAIN WHEN ASKED. C/L WITHIN REACH.
--- NOTE | 2018-06-08 17:19 | NUR ---
PATIENT UP IN W/C, SKIN W/D TO TOUCH, COLOR PINK, RESP. REGULAR AND EVEN AT 20. PATIENT CONTINUES TO BE THICK TONGUED WITH SPEECH, PUPILS EQUAL AND REACTIVE TO LIGHT. DINNER TRAY SERVED. C/L WITHIN REACH.
[2018-06-08 19:00] VITALS: BP 150/79
--- NOTE | 2018-06-08 20:04 | NUR ---
AWAKE AND ALERT SITTING IN WHEELCHAIR. ASSISTED TO BATHROOM AND BACK TO BED. STATES HE DIDNT HAVE A GOOD NIGHT LAST NIGHT BUT IT WAS ALL "WATER UNDER A BRIDGE" SEEMS CHEERFUL AND COOPERATIVE. NO DISTRESS NOTED. DRESSING INTACT TO LEFT LOWER EXTREMITIES. CALL LIGHT IN REACH.
--- NOTE | 2018-06-09 03:11 | NUR ---
RESTING IN BED WITH NO DISTRESS NOTED. CALL LIGHT IN REACH.
[2018-06-09 07:19] LABS: BASOPHILS 0.2 % (0-2); HEMATOCRIT 35.7 % (42.0-54.0); IMMATURE GRANULOCYTES 0.3 % (0-5); LYMPHOCYTES 17.9 % (15-50); MCH 36.6 pg (26.0-34.0); MCHC 33.6 g/dL (31.0-37.0); MCV 108.8 fL (80.0-100.0); MEAN PLATELET VOLUME 9.9 fL (7.4-10.4); MONOCYTES 10.1 % (2-11); NEUTROPHILS 70.5 % (40-80); PLATELET COUNT 222 10x3/uL (130-400); RBC 3.28 10x6/uL (4.20-6.10); RDW 13.5 % (11.5-14.5)
[2018-06-09 07:35] LABS: CALC OSMOLALITY 272 mosm/kg (275-300); CALCIUM 8.2 mg/dL (8.5-10.1); CARBON DIOXIDE 26.7 mmol/L (21.0-32.0); CHLORIDE - SERUM 103 mmol/L (98-107); CREATININE - SERUM 0.7 mg/dL (0.6-1.3); GLUCOSE 96 mg/dL (74-106); POTASSIUM - SERUM 3.6 mmol/L (3.5-5.1); SODIUM 137 mmol/L (136-145); UREA NITROGEN 9 mg/dL (7-18); eGFR NON AFRICAN AMERICAN > 90 mL/min (90-120)
[2018-06-09 08:00] VITALS: BP 163/75
--- NOTE | 2018-06-09 08:00 | NUR ---
IN BED.CL IN REACH.
--- NOTE | 2018-06-09 08:00 | NUR ---
PATIENT IS ALERT WITH CONFUSTION NOTED. BED ALARM ON. CALL LIGHT WITHIN REACH. VOICES NO NEEDS AT THIS TIME. WILL CONTINUE WITH PLAN OF CARE
--- NOTE | 2018-06-09 09:10 | NUR ---
PATIENT REFUSED ONE TAB OF CYMBALTA. STATED HE ONLY TAKES ONE TAB. ALL MEDICATION GONE OVER WITH PATIENT BEFORE PATIENT WOULD TAKE ANY MEDICATION. STATES HE HAS TOO MANY PILLS TO TAKE.
--- NOTE | 2018-06-09 13:10 | NUR ---
Nutrition Follow Up: Chart reviewed. Diet: Regular PO Intake: 78% meal avg - po intake improving BM: 06/07/18 Wt stable Meds and labs noted Rec continue current diet. RD following.
--- NOTE | 2018-06-09 13:45 | NUR ---
PATIENT REQUESTED PRN PAIN MEDICATION FOR LEFT LEG PAIN. GIVEN. PATIENT HELPED BACK TO BED. THERAPY DONE FOR THE DAY
--- NOTE | 2018-06-09 17:18 | NUR ---
PATIENT HAS VISITORS IN ROOM. SITTING UP AT THE SIDE OF THE BED IN A WHEELCHAIR.
--- NOTE | 2018-06-09 19:54 | NUR ---
PT UP IN WC, DRESSED IN YELLOW GOWN AND PLACED IN BED, NO OTHER NEEDS NOTED FLUIDS, URINAL, AND CALL LIGHT WITHIN REACH
--- NOTE | 2018-06-09 23:39 | NUR ---
PT ASLEEP NO NEEDS NOTED FLUIDS AND CALL LIGHT WITHIN REACH
[2018-06-10 00:09] VITALS: BP 134/77
--- NOTE | 2018-06-10 04:41 | NUR ---
PT ASLEEP NO NEEDS NOTED FLUIDS AND CALL LIGHT WITHIN REACH
--- NOTE | 2018-06-10 06:56 | NUR ---
RESTING QUIETLY IN BED. NO S/S DISTRESS OR NEEDS. CALL LIGHT IN REACH. BED IN LOWEST POSITION.
[2018-06-10 08:00] VITALS: BP 145/79
--- NOTE | 2018-06-10 08:00 | NUR ---
PATIENT SITTING IN WHEELCHAIR IN ROOM. ALERT/ORIENT. CALL LIGHT WITHIN REACH. WILL CONTINUE WITH PLAN OF CARE
--- NOTE | 2018-06-10 10:01 | NUR ---
PATIENT HAS VISITORS IN ROOM. VOICES NO NEEDS AT THIS TIME.
--- NOTE | 2018-06-10 17:02 | NUR ---
PATIENT USING CALL LIGHT TO TRANSFER FROM BED TO WHEELCHAIR. STAND BY ASST.
--- NOTE | 2018-06-10 22:39 | NUR ---
UP IN CHAIR TOILETED, FLUIDS AND CALL LIGHT WITHIN REACH
[2018-06-10 23:09] VITALS: BP 130/78
--- NOTE | 2018-06-10 23:58 | NUR ---
PT ASLEEP NO NEEDS NOTED FLUIDS AND CALL LIGHT WTHIN REACH
--- NOTE | 2018-06-11 07:30 | NUR ---
RECEIVED REPORT. SITTING UP ON SIDE OF BED ALERT AND ORIENTED X4. ASSISTED WITH URINAL. DENIES ANY OTHER NEEDS OR PAIN. RR EVEN AND UNLABORED. CALL LIGHT WITHIN REACH, FALL PRECAUTIONS IN PLACE
--- NOTE | 2018-06-11 08:15 | NUR ---
ADMININSTERED MORNING MEDS WHOLE WITHOUT DIFFICULTY. CHANGED LINENS. DENIES ANY NEEDS OR PAIN. CALL LIGHT WITHIN REACH, W/C ALARM ON
--- NOTE | 2018-06-11 11:30 | NUR ---
PT PERFORMING PERSONAL HYGIENE PROVIDED SHOWER SET UP AND SBA IF NEEDED. PT USED MODIFIED DEVICE TO SHOWER AND DRESS HIMSELF. PT PERFORMED FACIAL GROOMING AND ORAL HYGIENE INDEPENDENTLY.
--- NOTE | 2018-06-11 13:10 | NUR ---
SITTING UP IN W/C WATCHING FOOTBALL. DENIES ANY NEEDS OR PAIN. NO S/SX OF ACUTE DISTRESS NOTED
--- NOTE | 2018-06-11 16:18 | NUR ---
OBSERVED PT TRANSFER FROM BED TO CHAIR SAFELY WITHOUT ASSISTANCE. DENIES ANY NEED OR PAIN. NO S/SX OF ACUTE DISTRESS NOTED. CALL LIGHT WITHIN REACH, CHAIR ALARM ON
--- NOTE | 2018-06-11 17:35 | NUR ---
SITTING UP IN W/C EATING DINNER. DENIES ANY NEEDS OR PAIN. CALL LIGHT WITHIN REACH, W/C ALARM ON
--- NOTE | 2018-06-11 19:23 | NUR ---
PT UP IN CHAIR SHOWER AND SHAVE TODAY, PT MADE OWN BED, NO NEEDS NOTED FLUIDS AND CALL LIGHT WITHIN REACH
--- NOTE | 2018-06-12 00:46 | NUR ---
PT ASLEEP NO NEEDS NOTED FLUIDS AND CALL LIGHT WITHIN REACH
[2018-06-12 04:35] VITALS: BP 135/80
--- NOTE | 2018-06-12 04:42 | NUR ---
EMPTIED URINAL 500CC, PT JOKING AROUND LAUGHING, NO OTHER NEEDS NOTED FLUIDS AND CALL LIGHT WITHIN REACH
--- NOTE | 2018-06-12 07:23 | NUR ---
NO CHANGE IN ASSESSMENT. ALERT. NO DISTRESS NOTED. NO C/O PAIN. SITTING UP IN WC.
[2018-06-12 07:24] LABS: BASOPHILS 0.3 % (0-2); EOSINOPHILS 2.2 % (0-7); HEMATOCRIT 34.9 % (42.0-54.0); HEMOGLOBIN 11.6 g/dL (13.5-17.5); IMMATURE GRANULOCYTES 0.2 % (0-5); LYMPHOCYTES 14.3 % (15-50); MCH 36.4 pg (26.0-34.0); MCHC 33.2 g/dL (31.0-37.0); MCV 109.4 fL (80.0-100.0); MEAN PLATELET VOLUME 9.9 fL (7.4-10.4); PLATELET COUNT 238 10x3/uL (130-400); RBC 3.19 10x6/uL (4.20-6.10); RDW 13.2 % (11.5-14.5); WBC 6.3 10x3/uL (4.8-10.8)
[2018-06-12 07:35] LABS: CALC OSMOLALITY 280 mosm/kg (275-300); CALCIUM 8.4 mg/dL (8.5-10.1); CARBON DIOXIDE 27.1 mmol/L (21.0-32.0); CHLORIDE - SERUM 106 mmol/L (98-107); CREATININE - SERUM 0.7 mg/dL (0.6-1.3); GLUCOSE 111 mg/dL (74-106); POTASSIUM - SERUM 3.9 mmol/L (3.5-5.1); SODIUM 141 mmol/L (136-145); UREA NITROGEN 10 mg/dL (7-18); eGFR NON AFRICAN AMERICAN > 90 mL/min (90-120)
--- NOTE | 2018-06-12 07:40 | NUR ---
PATIENT ALERT/ORIENT. SITTING UP IN WHEELCHAIR AT BEDSIDE TO EAT BREAKFAST. CALL LIGHT WITHIN REACH. VOICES NO NEEDS. WILL CONTINUE WITH PLAN OF CARE.
[2018-06-12 08:27] VITALS: BP 147/85
--- NOTE | 2018-06-12 11:20 | NUR ---
PATIENT IN REHAB ROOM. WORKING WITH PHYSICAL THERAPIST. DENIES ANY PAIN/DISCOMFORT AT THIS TIME.
--- NOTE | 2018-06-12 16:42 | NUR ---
PATIENT BACK IN ROOM AFTER THERAPY. SITTING UP IN WHEELCHAIR BY BEDSIDE. VISIOTRS IN ROOM
[2018-06-12 19:00] VITALS: BP 162/85
--- NOTE | 2018-06-12 20:00 | NUR ---
PT UP IN CHAIR, TOILETED, SBA TO BED, FLUIDS AND CALL LIGHT WITHIN REACH
--- NOTE | 2018-06-13 03:18 | NUR ---
PT ASLEEP NO NEEDS NOTED FLUIDS AND CALL LIGHT WITHIN REACH
[2018-06-13 08:00] VITALS: BP 150/70
--- NOTE | 2018-06-13 08:00 | NUR ---
SHIFT ASSMT COMPLETED;DENIES NEEDS.SHORTY WRAP DRSG LEFT ANKLE IN PLACE.BREAKFAST GIVEN.
--- NOTE | 2018-06-13 09:50 | NUR ---
Nutrition Follow Up: Chart reviewed Diet: Regular; 30 ml whiskey with meals PO Intake: 100% meal avg BM: 06/12/18 Meds and labs reviewed Rec continue current diet. RD following.
--- NOTE | 2018-06-13 16:00 | NUR ---
IN WC.DENIES NEEDS.
--- NOTE | 2018-06-13 16:00 | NUR ---
UP IN WC.LUNCH GIVEN.
[2018-06-13 19:00] VITALS: BP 155/75
--- NOTE | 2018-06-13 19:07 | NUR ---
AWAKE AND ALERT SKIN WARM AND DRY. RESPIRATIONS UNLABORED. SITTING UP IN WHEELCHAIR. NO DISTRESS NOTED.
--- NOTE | 2018-06-14 00:19 | NUR ---
RESTING IN BED WITH EYES CLOSED. RESPIRATIONS UNLABORED. NO DISTRESS NOTED.
--- NOTE | 2018-06-14 03:31 | NUR ---
RESTING IN BED. NO CHANGE IN CONDITION NOTED. RESPIRATIONS UNLABORED.
--- NOTE | 2018-06-14 06:33 | NUR ---
RESTING IN BED WITH CONDITION UNCHANGED. NO DISTERSS NOTED.
[2018-06-14 07:30] LABS: BASOPHILS 0.3 % (0-2); EOSINOPHILS 2.1 % (0-7); HEMATOCRIT 38.4 % (42.0-54.0); HEMOGLOBIN 12.8 g/dL (13.5-17.5); IMMATURE GRANULOCYTES 0.2 % (0-5); LYMPHOCYTES 20.8 % (15-50); MCH 36.5 pg (26.0-34.0); MCHC 33.3 g/dL (31.0-37.0); MCV 109.4 fL (80.0-100.0); NEUTROPHILS 70.6 % (40-80); PLATELET COUNT 280 10x3/uL (130-400); RBC 3.51 10x6/uL (4.20-6.10); RDW 13.2 % (11.5-14.5); WBC 6.1 10x3/uL (4.8-10.8)
[2018-06-14 07:53] LABS: CALC OSMOLALITY 283 mosm/kg (275-300); CALCIUM 8.6 mg/dL (8.5-10.1); CARBON DIOXIDE 28.7 mmol/L (21.0-32.0); CHLORIDE - SERUM 104 mmol/L (98-107); CREATININE - SERUM 0.7 mg/dL (0.6-1.3); GLUCOSE 91 mg/dL (74-106); POTASSIUM - SERUM 4.3 mmol/L (3.5-5.1); SODIUM 143 mmol/L (136-145); UREA NITROGEN 10 mg/dL (7-18); eGFR NON AFRICAN AMERICAN > 90 mL/min (90-120)
[2018-06-14 08:00] VITALS: BP 155/82
--- NOTE | 2018-06-14 08:00 | NUR ---
SHIFT ASSMT COMPLETED.
[2018-06-14 19:00] VITALS: BP 145/72
--- NOTE | 2018-06-14 19:23 | NUR ---
PATIENT IS SITTING UP IN HIS WHEELCHAIR AND WATCHING TV. HE HAS HIS CALL LIGHT IN REACH. STATES HE HAS NO NEEDS AT THIS TIME.
--- NOTE | 2018-06-14 21:23 | NUR ---
PATIENT IS SITTING UP IN WHEELCHAIR, WATCHING TV. DENIES ANY NEEDS. CALL LIGHT IN REACH.
--- NOTE | 2018-06-15 00:08 | NUR ---
PATIENT IS SLEEPING. BED IS DOWN LOW WITH SIDE RAILS UP X2. BED ALARM ACTIVATED AND CALL LIGHT IN REACH.
--- NOTE | 2018-06-15 04:03 | NUR ---
PATIENT IS SLEEPING. BED IS DOWN LOW WITH SIDE RAILS UP X2 AND CALL LIGHT IN REACH.
[2018-06-15 08:00] VITALS: BP 156/75
--- NOTE | 2018-06-15 10:45 | NUR ---
REFERRAL HAS BEEN FAXED TO [facility] POSSIBLE ADMISSION IN AM. WILL CONTINUE TO FOLLOW WITH PATIENT.
--- NOTE | 2018-06-15 16:49 | NUR ---
PATIENT HAS BEEN ACCEPTED TO [facility] AND WILL DISCHARGE THERE IN AM.
[2018-06-15 19:00] VITALS: BP 175/73
--- NOTE | 2018-06-15 19:04 | NUR ---
PATIENT IS SITTING UP IN HIS WHEELCHAIR. HE HAS NO COMPLAINTS AT THIS TIME. CALL LIGHT IS IN REACH.
--- NOTE | 2018-06-15 20:28 | NUR ---
PATIENT IS SITTING UP IN HIS WHEELCHAIR. CALL LIGHT IS IN REACH.
--- NOTE | 2018-06-16 00:04 | NUR ---
PATIENT IS AWAKE AND SITTING UP IN WHEELCHAIR. HE DENIES ANY NEEDS. CALL LIGHT IS IN REACH.
--- NOTE | 2018-06-16 04:04 | NUR ---
PATIENT IS SLEEPING. BED IS DOWN LOW WITH SIDE RAILS UP X2. CALL LIGHT IN REACH. BED ALARM ACTIVATED.
[2018-06-16 07:50] LABS: BASOPHILS 0.5 % (0-2); CALC OSMOLALITY 276 mosm/kg (275-300); CALCIUM 8.4 mg/dL (8.5-10.1); CHLORIDE - SERUM 104 mmol/L (98-107); CREATININE - SERUM 0.8 mg/dL (0.6-1.3); EOSINOPHILS 2.6 % (0-7); GLUCOSE 88 mg/dL (74-106); HEMATOCRIT 37.1 % (42.0-54.0); HEMOGLOBIN 12.2 g/dL (13.5-17.5); IMMATURE GRANULOCYTES 0.2 % (0-5); LYMPHOCYTES 22.9 % (15-50); MCH 35.8 pg (26.0-34.0); MCHC 32.9 g/dL (31.0-37.0); MCV 108.8 fL (80.0-100.0); MEAN PLATELET VOLUME 10.2 fL (7.4-10.4); MONOCYTES 9.8 % (2-11); PLATELET COUNT 256 10x3/uL (130-400); RBC 3.41 10x6/uL (4.20-6.10); RDW 12.7 % (11.5-14.5); SODIUM 140 mmol/L (136-145); UREA NITROGEN 10 mg/dL (7-18); WBC 5.8 10x3/uL (4.8-10.8); eGFR NON AFRICAN AMERICAN > 90 mL/min (90-120)
[2018-06-16 08:00] VITALS: BP 156/92
--- NOTE | 2018-06-16 08:00 | NUR ---
PATIENT SITTING UP IN WHEELCHAIR THIS AM. ALERT/ORIENT. CALL LIGHT WITHIN REACH. VOICES NO NEEDS. PLAN TO DISCHARGE TO [facility] THIS AM.
[2018-06-16 08:09] LABS: POTASSIUM - SERUM 3.5 mmol/L (3.5-5.1)
--- NOTE | 2018-06-16 09:10 | NUR ---
PATIENT DISCHARGING TO [facility] VIA [facility]ILITY [facility]. NO HOME HEALTH OR DME NEEDED AT THIS TIME.AN APPOINTMENT WITH DR. BLANCO WILL BE MADE AT TIME OF DISCHARGE FROM FACILITY. DR. PATEL 06/26/18 @ 10;40. PATIENT CHOICE FORM FOR SNF AND [facility] FORMS SIGNED AND FILED IN CHART.DISCHARGE INSTRUCTIONS WITH [facility] DATA FAXED TO PCP AND TO SNF.
--- NOTE | 2018-06-16 10:59 | NUR ---
DISCHARGE COMPLETE. WAITING FOR CISNE TO FURNACE CHARGING MACHINE OPERATOR PATIENT.
--- NOTE | 2018-06-16 11:42 | NUR ---
JONATHAN GÓMEZ HERE TO TAKE PATIENT TO FACILITY
== END 2018-06-16 12:32 | DRG 561 ==
LOC: D.REHAB 19:38
PROVIDERS: ADMIT Emergency Medicine
DX: S82.832D Other fracture of upper and lower end of left fibula, subsequent encounter for closed fracture with routine healing (principal); W19.XXXD Unspecified fall, subsequent encounter; J44.9 Chronic obstructive pulmonary disease, unspecified; I73.9 Peripheral vascular disease, unspecified; I10 Essential (primary) hypertension; M19.90 Unspecified osteoarthritis, unspecified site; M54.9 Dorsalgia, unspecified; G89.29 Other chronic pain; F10.20 Alcohol dependence, uncomplicated; F17.200 Nicotine dependence, unspecified, uncomplicated; F41.8 Other specified anxiety disorders; S22.089D Unspecified fracture of T11-T12 vertebra, subsequent encounter for fracture with routine healing; Z85.51 Personal history of malignant neoplasm of bladder

== ENCOUNTER 2018-06-30 11:50 | Inpatient (IN) | payer MEDICARE, OTHER ==
[~2018-06-30] VITALS: Ht 172.7 cm; Wt 110.0 kg
[~2018-06-30 11:50] MED LIST changes: +[UNRECOGNIZED DRUG - OTHER]
[2018-06-30 12:45] LABS: HEMATOCRIT 37.8 % (42.0-54.0); HEMOGLOBIN 12.7 g/dL (13.5-17.5); MCH 35.3 pg (26.0-34.0); MCHC 33.6 g/dL (31.0-37.0); MEAN PLATELET VOLUME 9.6 fL (7.4-10.4); RBC 3.6 10x6/uL (4.20-6.10); RDW 12.4 % (11.5-14.5); WBC 6.7 10x3/uL (4.8-10.8)
[2018-06-30 12:59] LABS: CALC OSMOLALITY 276 mosm/kg (275-300); CALCIUM 8.1 mg/dL (8.5-10.1); CARBON DIOXIDE 27.6 mmol/L (21.0-32.0); CHLORIDE - SERUM 102 mmol/L (98-107); CREATININE - SERUM 0.7 mg/dL (0.6-1.3); GLUCOSE 103 mg/dL (74-106); POTASSIUM - SERUM 3.8 mmol/L (3.5-5.1); SODIUM 139 mmol/L (136-145); UREA NITROGEN 10 mg/dL (7-18); eGFR NON AFRICAN AMERICAN > 90 mL/min (90-120)
[2018-06-30 13:34] VITALS: BP 164/85; BMI 38.8
[2018-06-30 19:07] VITALS: BP 151/114; Ht 172.7 cm; Wt 110.0 kg
[2018-07-01] VITALS (7 sets, daily range): BP systolic 127–161; BP diastolic 56–86
[2018-07-01 14:00] LABS: BASOPHILS 0.2 % (0-2); EOSINOPHILS 0.4 % (0-7); HEMATOCRIT 38.9 % (42.0-54.0); HEMOGLOBIN 12.9 g/dL (13.5-17.5); IMMATURE GRANULOCYTES 0.2 % (0-5); LYMPHOCYTES 6.9 % (15-50); MCH 34.9 pg (26.0-34.0); MCHC 33.2 g/dL (31.0-37.0); MCV 105.1 fL (80.0-100.0); MEAN PLATELET VOLUME 9.5 fL (7.4-10.4); MONOCYTES 3.2 % (2-11); NEUTROPHILS 89.1 % (40-80); PLATELET COUNT 148 10x3/uL (130-400); RDW 12.4 % (11.5-14.5)
[2018-07-01 14:17] LABS: ALKALINE PHOSPHATASE 88 U/L (46-116); ALT (SGPT) 23 U/L (10-68); CALC OSMOLALITY 274 mosm/kg (275-300); CARBON DIOXIDE 25.5 mmol/L (21.0-32.0); CHLORIDE - SERUM 104 mmol/L (98-107); CREATININE - SERUM 0.7 mg/dL (0.6-1.3); GLUCOSE 116 mg/dL (74-106); POTASSIUM - SERUM 4.3 mmol/L (3.5-5.1); PROTEIN - SERUM 6.5 g/dL (6.4-8.2); SODIUM 138 mmol/L (136-145); UREA NITROGEN 8 mg/dL (7-18); eGFR NON AFRICAN AMERICAN > 90 mL/min (90-120)
--- NOTE | 2018-07-01 20:01 | MORECARE ---
CASE MANAGEMENT DISCHARGE SUMMARY PATIENT: DANIEL CARREON UNIT: [id number] ADM DATE: 06/30/18 AGE: 63 : 55 SEX: M ROOM/BED: D.2239 AUTHOR: TEAGAN CASTAÑEDA PHYSICIAN: REFERRING PHYSICIAN: MONTRELL PATEL DO DATE OF SERVICE: 07/01/18 Discharge Plan Patient Name: DANIEL CARREON Facility: [facility]:[place] : 1955 Planned Disposition: Anticipated Discharge Date: Discharge Date: Expected LOS: Initial Reviewer: [email or web address] Initial Review Date: 06/30/2018 Generated: 07/01/18 9:01 pm Comments DCP- Discharge Planning Updated by [email or web address]: Nancy Guaman on 07/01/18 7:[address] CM met with patient and regarding dc needs/plans. Spouse states patient will return to [facility]Rehab upon discharge. CM contacted August to verify same and she states patient is in a skilled bed at the facility. Patient has a w/c in his room from the facility. CM will fax information when MD is ready to discharge. Nancy Guaman RN, CM Patient Name: DANIEL CARREON Page [phone] at 2000 All edits/amendments must be made on the electronic document DICTATION DATE: 07/01/182000 ASSISTANCE REPRESENTATIVE: JORDI 07/01/182000 RPT#: [id number] DC DATE: STATUS: ADM IN [facility] [address] [place] [address] END OF REPORT
[2018-07-02] VITALS: BP 130/53
[2018-07-02 03:00] VITALS: BP 130/53
[2018-07-02 05:40] LABS: BASOPHILS 0.1 % (0-2); EOSINOPHILS 0 % (0-7); HEMATOCRIT 34.8 % (42.0-54.0); HEMOGLOBIN 11.6 g/dL (13.5-17.5); IMMATURE GRANULOCYTES 0.1 % (0-5); MCH 34.5 pg (26.0-34.0); MCHC 33.3 g/dL (31.0-37.0); MCV 103.6 fL (80.0-100.0); MONOCYTES 11.7 % (2-11); NEUTROPHILS 76.1 % (40-80); PLATELET COUNT 161 10x3/uL (130-400); RBC 3.36 10x6/uL (4.20-6.10); RDW 12.3 % (11.5-14.5)
[2018-07-02 05:50] LABS: WBC 7.1 10x3/uL (4.8-10.8)
[2018-07-02 06:00] LABS: ALBUMIN 2.5 g/dL (3.4-5.0); ALKALINE PHOSPHATASE 74 U/L (46-116); BILIRUBIN - TOTAL 0.44 mg/dL (0.2-1.3); CALCIUM 7.9 mg/dL (8.5-10.1); CHLORIDE - SERUM 101 mmol/L (98-107); CREATININE - SERUM 0.7 mg/dL (0.6-1.3); GLUCOSE 107 mg/dL (74-106); PROTEIN - SERUM 6.1 g/dL (6.4-8.2); SODIUM 137 mmol/L (136-145); eGFR NON AFRICAN AMERICAN > 90 mL/min (90-120)
[2018-07-02 06:02] LABS: ALT (SGPT) 15 U/L (10-68); CALC OSMOLALITY 272 mosm/kg (275-300); POTASSIUM - SERUM 3.6 mmol/L (3.5-5.1); UREA NITROGEN 11 mg/dL (7-18)
[2018-07-02 08:24] VITALS: BP 164/75
[2018-07-02 12:30] VITALS: BP 170/78
[2018-07-02 16:30] VITALS: BP 156/79
[2018-07-02 20:00] VITALS: BP 166/87
[2018-07-03] VITALS: BP 155/79
[2018-07-03 03:00] VITALS: BP 164/66
[2018-07-03 06:42] LABS: BASOPHILS 0.4 % (0-2); HEMATOCRIT 35.1 % (42.0-54.0); HEMOGLOBIN 11.5 g/dL (13.5-17.5); IMMATURE GRANULOCYTES 0.2 % (0-5); LYMPHOCYTES 26.4 % (15-50); MCH 33.8 pg (26.0-34.0); MCHC 32.8 g/dL (31.0-37.0); MCV 103.2 fL (80.0-100.0); MEAN PLATELET VOLUME 9.9 fL (7.4-10.4); MONOCYTES 14.2 % (2-11); NEUTROPHILS 56.8 % (40-80); PLATELET COUNT 156 10x3/uL (130-400); RDW 12.5 % (11.5-14.5)
--- NOTE | 2018-07-03 06:43 | OP ---
PATIENT NAME: DANIEL DAVE MEDICAL RECORD: [id number] :55 LOCATION:D.[facility] [place].2239 ADMISSION DATE:06/30/18 SURGEON: MONTRELL PATEL DO DATE OF OPERATION: 07/01/2018 PROCEDURE PERFORMED: Revision of left ankle open reduction internal fixation. PREOPERATIVE DIAGNOSIS: Displaced left ankle fracture status post open reduction internal fixation. POSTOPERATIVE DIAGNOSIS: Displaced left ankle fracture status post open reduction internal fixation. INDICATIONS: Mr. Dave is a 63-year-old male who had his ankle fixed after falling approximately in June 02. He had been in a correction, seen in my office. X-rays were taken and the ankle had displaced laterally, the talus was subluxed under the tibia laterally and the tibial head fracture had a displaced slightly as well. He admits to walking on his ankle, even though he was strict nonweightbearing and that is likely the reason why it happened. He is informed that we needed to fix as his ankle would continue to sublux out laterally if we did not and he was aware of the risks and benefits of the procedure including infection, bleeding, damage to nerve and vessels, need for further surgery to walk on it and continued pain. He was okay with that and signed the consent. SURGEON: Montrell Patel DO DESCRIPTION OF PROCEDURE: The patient was taken to the operative suite after given a block by anesthesia, given 2 grams of Rocephin preoperatively and the left lower extremity was prepped and draped in sterile fashion. A timeout was performed, everyone was in agreeance with the correct side, site, patient and procedure. Once the time-out had been performed, the left lower extremity was exsanguinated with an Esmarch and tourniquet was inflated to 350 mmHg, was up for 73 minutes throughout the procedure. The incision then began over the lateral incision, prior incision, but extended more proximally. The plate was taken off. The button that was put on that from the TightRope stayed on and the incision was made medially to try to find the button, it was very posterior on the tibia and did not want to do a larger incision or open it up more and left the button. These sutures were then cut off the button from the plate and then the plate was removed. A longer plate was then placed on the fibula and an x-ray was taken AP and lateral to confirm good position of the plate and then a screw was placed proximal to the prior plate. A hole in the shaft and then distally there were [address], 4 of them from the original holes and then 1 more and more distally. Once the distal screws were put into place on the fibula plate, 2 more screws were put more proximal in the plate with the last one being a locking screw, the most proximal one, into the fibula and then the tight robes was put in and then rest of the procedure was done as described. Blood loss was approximately 150 mL. At that time, a large clamp was used to clamp the ankle together and 2 TightRopes were placed through the plate and through the tibia. This was confirmed on x-ray and then tightened down. The medial ankle was somewhat supinating and it was seen to be a little loose. At that time, another medial incision was made right over the medial malleolus and a 1.4 JuggerKnot anchor was used, put in there and then sutured up through the deltoid ligament to tighten it. X-rays were taken, it seemed to tighten up some, and then the tourniquet was let down at 73 minutes. Irrigation OPERATIVE REPORT [id number] DANIEL DAVE was done through the incisions and each incision site was closed with 2-0 Vicryl in an interrupted fashion and ZipLines were placed on them. Adaptic, 4 x 4's, ABD, and cast padding was then placed over that and then the patient was placed in a 4 x 30 splint and 4-inch and 6-inch Yang wrap was used to secure it into place. The patient was then awakened and taken to recovery in stable condition. COMPLICATIONS: None. TRANSINT:[id number] Voice Confirmation ID: [id number] DOCUMENT ID: [id number] MONTRELL PATEL DO at 0643 CC: [id number] DICTATION DATE: 07/01/18 1214 HUMAN [employer]OURCE [employer]NSHIP: 07/01/18 0234 ADM IN [facility] [id number] [place] [address]
[2018-07-03 07:05] LABS: ALBUMIN 2.6 g/dL (3.4-5.0); ALKALINE PHOSPHATASE 75 U/L (46-116); BILIRUBIN - TOTAL 0.48 mg/dL (0.2-1.3); CALCIUM 7.8 mg/dL (8.5-10.1); CARBON DIOXIDE 27.1 mmol/L (21.0-32.0); CHLORIDE - SERUM 103 mmol/L (98-107); CREATININE - SERUM 0.6 mg/dL (0.6-1.3); GLUCOSE 91 mg/dL (74-106); POTASSIUM - SERUM 3.6 mmol/L (3.5-5.1); PROTEIN - SERUM 5.5 g/dL (6.4-8.2); SODIUM 140 mmol/L (136-145); eGFR NON AFRICAN AMERICAN > 90 mL/min (90-120)
[2018-07-03 07:07] LABS: ALT (SGPT) 22 U/L (10-68); CALC OSMOLALITY 276 mosm/kg (275-300); UREA NITROGEN 7 mg/dL (7-18)
[2018-07-03 07:23] LABS: WBC 4.6 10x3/uL (4.8-10.8)
[2018-07-03 08:28] VITALS: BP 171/87
--- NOTE | 2018-07-03 10:07 | MORECARE ---
CASE MANAGEMENT DISCHARGE SUMMARY PATIENT: YOUNG DAVE UNIT: [id number] ADM DATE: 06/30/18 AGE: 63 : 55 SEX: M ROOM/BED: D.2239 AUTHOR: TEAGAN CASTAÑEDA PHYSICIAN: REFERRING PHYSICIAN: MONTRELL PATEL DO DATE OF SERVICE: 07/03/18 Discharge Plan Patient Name: YOUNG DAVE Facility: [facility]:[place] : 1955 Planned Disposition: Care Home Facility Anticipated Discharge Date: Discharge Date: Expected LOS: Initial Reviewer: [id number] Initial Review Date: 06/30/2018 Generated: 07/03/18 11:07 am Comments DCP- Discharge Planning Updated by [email or web address]: Nancy Guaman on 07/01/18 7:[address] CM met with patient and regarding dc needs/plans. Spouse states patient will return to [facility]Rehab upon discharge. CM contacted August to verify same and she states patient is in a skilled bed at the facility. Patient has a w/c in his room from the facility. CM will fax information when MD is ready to discharge. Nancy Guaman RN CM Coverage Notice Reviewer: [id number] - Nancy Guaman Notice Issued Date-Time: 07/02/2018 18:03 Notice Type: IM Admission Notice Notice Delivered To: Patient Relationship to Patient: Self Coning Machine Operator Name: Young Dave Delivery Method: - Mansi Days: Prior Verbal Notification: Recipient Understood Notice: Recipient Signature: Med Rec Note Co-signed by Attending: Coverage Notice Comment: Reviewer: [id number] Milton Guaman Notice Issued Date-Time: 07/02/2018 18:03 Notice Type: Patient Choice Letter Notice Delivered To: Patient Relationship to Patient: Self Coning Machine Operator Name: Young Dave Delivery Method: - Mansi Days: Prior Verbal Notification: Recipient Understood Notice: Recipient Signature: Med Rec Note Co-signed by Attending: Coverage Notice Comment: Reviewer: [email or web address] Milton Baptiste Notice Issued Date-Time: 07/03/2018 10:04 Notice Type: IM Discharge Notice Notice Delivered To: Other Relationship to Patient: Spouse Coning Machine Operator Name: Atslicka Delivery Method: HAND - Hand Delivered Mansi Days: Prior Verbal Notification: Recipient Understood Notice: Yes Recipient Signature: Yes Med Rec Note Co-signed by Attending: Coverage Notice Comment: IMM explained, signed by , given, copy placed in MR Last DP export: 07/01/18 7:01 pm Patient Name: YOUNG DAVE Page [phone] at 1007 All edits/amendments must be made on the electronic document DICTATION DATE: 07/03/18 100 BLOCKER HEATED METAL FORMS: JORDI 07/03/181005 RPT#: [id number] DC DATE: STATUS: ADM IN [facility] [address] [place] [address] END OF REPORT
--- NOTE | 2018-07-03 10:28 | MORECARE ---
CASE MANAGEMENT DISCHARGE SUMMARY PATIENT: YOUNG DAVE UNIT: [id number] ADM DATE: 06/30/18 AGE: 63 : 55 SEX: M ROOM/BED: D.2239 AUTHOR: TEAGAN CASTAÑEDA PHYSICIAN: REFERRING PHYSICIAN: MONTRELL PATEL DO DATE OF SERVICE: 07/03/18 Discharge Plan Patient Name: YOUNG DAVE Facility: [facility]:[place] : 1955 Planned Disposition: Fdc Facility Anticipated Discharge Date: Discharge Date: Expected LOS: Initial Reviewer: [email or web address] Initial Review Date: 06/30/2018 Generated: 07/03/18 11:28 am Comments DCP- Discharge Planning Updated by [id number]: Sabina Baptiste on 07/03/18 9:[address] Received order for discharge. He is on 6L [place] oxygen. states he takes it off all the time. I informed the nurse that she may need to wean prior to discharge to skilled facility. I called Alicia with [facility] and clinical faxed. She will call me back when accepted. CM will continue to follow and assist with discharge planning/needs. DCP- Discharge Planning Updated by [id number]: Nancy Guaman on 07/01/18 7:[address] CM met with patient and regarding dc needs/plans. Spouse states patient will [facility]. CM contacted August to verify same and she states patient is in a skilled bed at the facility. Patient has a w/c in his room from the facility. CM will fax information when MD is ready to discharge. Nancy Guaman RN, CM External Providers External Provider: [facility] [place] Next Contact Date: Service Request Date: Service Type: Resolution: Reviewer: Comments: Coverage Notice Reviewer: [id number] Milton Guaman Notice Issued Date-Time: 07/02/2018 18:03 Notice Type: IM Admission Notice Notice Delivered To: Patient Relationship to Patient: Self Senior Planner Name: Young Dave Delivery Method: - Mansi Days: Prior Verbal Notification: Recipient Understood Notice: Recipient Signature: Med Rec Note Co-signed by Attending: Coverage Notice Comment: Reviewer: [id number] Milton Guaman Notice Issued Date-Time: 07/02/2018 18:03 Notice Type: Patient Choice Letter Notice Delivered To: Patient Relationship to Patient: Self Senior Planner Name: Young Dave Delivery Method: - Mansi Days: Prior Verbal Notification: Recipient Understood Notice: Recipient Signature: Med Rec Note Co-signed by Attending: Coverage Notice Comment: Reviewer: [id number] - Sabina Baptiste Notice Issued Date-Time: 07/03/2018 10:04 Notice Type: IM Discharge Notice Notice Delivered To: Other Relationship to Patient: Spouse Senior Planner Name: Gurinder Delivery Method: HAND - Hand Delivered Mansi Days: Prior Verbal Notification: Recipient Understood Notice: Yes Recipient Signature: Yes Med Rec Note Co-signed by Attending: Coverage Notice Comment: IMM explained, signed by , given, copy placed in MR Last DP export: 07/03/18 9:07 a Patient Name: YOUNG DAVE Page [phone] at 1028 All edits/amendments must be made on the electronic document DICTATION DATE: 07/03/18 1027 AUTOMOTIVE GLASS TECHNICIAN: JORDI 07/03/18 1027 RPT#: [id number] DC DATE: STATUS: ADM IN [facility] [address] [place] [address] END OF REPORT
--- NOTE | 2018-07-03 12:27 | MORECARE ---
CASE MANAGEMENT DISCHARGE SUMMARY PATIENT: YOUNG DAVE UNIT: [id number] ADM DATE: 06/30/18 AGE: 63 : 55 SEX: M ROOM/BED: D.2239 AUTHOR: TEAGAN CASTAÑEDA PHYSICIAN: REFERRING PHYSICIAN: MONTRELL PATEL DO DATE OF SERVICE: 07/03/18 Discharge Plan Patient Name: YOUNG DAVE Facility: [facility]:[place] : 1955 Planned Disposition: Detention Facility Anticipated Discharge Date: Discharge Date: Expected LOS: Initial Reviewer: [email or web address] Initial Review Date: 06/30/2018 Generated: 07/03/18 1:27 pm Comments DCP- Discharge Planning Updated by [id number]: Sabina Carusobradford on 07/03/18 11:[address] He has been accepted back to [facility]. RT states he is now on 3l NC with oxygen saturation of 93%. I called [facility] with Dr. Quispe about being on whiskey and Librium, Alicia at [facility] states that their pharmacist states he cannot be on both. Alicia states they have been giving him whiskey there. [facility] discontinued the Librium. I faxed updated med list to [facility]. Alicia states they will pick him up at 1400. I notified assessment coordinator and his nurse, Chayito. I also told Chayito not to give both the Librium and whiskey, that the doctor has discontinued the Librium. He is going to a skilled bed today at [facility]. His is in the room and agrees with discharge plan. DCP- Discharge Planning Updated by [id number]: Sabina Baptiste on 07/03/18 9:[address] Received order for discharge. He is on 6L [place] oxygen. states he takes it off all the time. I informed the nurse that she may need to wean prior to discharge to skilled facility. [facility] and clinical [facility]. She will call me back when accepted. CM will continue to follow and assist with discharge planning/needs. DCP- Discharge Planning Updated by [id number]: Nancy Guaman on 07/01/18 7:[address] CM met with patient and regarding dc needs/plans. Spouse states patient will return to [facility]hab upon discharge. CM contacted August to verify same and she states patient is in a skilled bed at the facility. Patient has a w/c in his room from the facility. CM will fax information when MD is ready to discharge. Nancy Guaman RN CM Coverage Notice Reviewer: [id number] Milton Guaman Notice Issued Date-Time: 07/02/2018 18:03 Notice Type: IM Admission Notice Notice Delivered To: Patient Relationship to Patient: Self Dietitian Name: Young Dave Delivery Method: - Mansi Days: Prior Verbal Notification: Recipient Understood Notice: Recipient Signature: Med Rec Note Co-signed by Attending: Coverage Notice Comment: Reviewer: [id number] Milton Guaman Notice Issued Date-Time: 07/02/2018 18:03 Notice Type: Patient Choice Letter Notice Delivered To: Patient Relationship to Patient: Self Dietitian Name: Young Dave Delivery Method: - Mansi Days: Prior Verbal Notification: Recipient Understood Notice: Recipient Signature: Med Rec Note Co-signed by Attending: Coverage Notice Comment: Reviewer: [id number] Milton Baptiste Notice Issued Date-Time: 07/03/2018 10:04 Notice Type: IM Discharge Notice Notice Delivered To: Other Relationship to Patient: Spouse Dietitian Name: Gurinder Delivery Method: HAND - Hand Delivered Mansi Days: Prior Verbal Notification: Recipient Understood Notice: Yes Recipient Signature: Yes Med Rec Note Co-signed by Attending: Coverage Notice Comment: IMM explained, signed by , given, copy placed in MR Last DP export: 07/03/18 9:28 a Patient Name: YOUNG DAVE Page [phone] at 1227 All edits/amendments must be made on the electronic document DICTATION DATE: 07/03/18 1227 HEALTH OUTREACH WORKER: JORDI 07/03/18 1227 RPT#: [id number] DC DATE: STATUS: ADM IN [facility] [address] [place] [address] END OF REPORT
--- NOTE | 2018-07-04 07:54 | MORECARE ---
CASE MANAGEMENT DISCHARGE SUMMARY PATIENT: YOUNG DAVE UNIT: [id number] ADM DATE: 06/30/18 AGE: 63 : 55 SEX: M ROOM/BED: D.2239 AUTHOR: TEAGAN CASTAÑEDA PHYSICIAN: REFERRING PHYSICIAN: MONTRELL PATEL DO DATE OF SERVICE: 07/04/18 Discharge Plan Patient Name: YOUNG DAVE Facility: [facility]:[place] : 1955 Planned Disposition: [facility] Facility Anticipated Discharge Date: Discharge Date: 07/03/2018 Expected LOS: 0 Initial Reviewer: [email or web address] Initial Review Date: 06/30/2018 Generated: 07/04/18 8:54 am Comments DCP- Discharge Planning Updated by [email or web address]: Sabinakayla Baptiste on 07/03/18 11:[address] He has been accepted back to [facility]. RT states he is now on 3l NC with oxygen saturation of 93%. I called [facility] with Dr. Quispe about being on whiskey and Librium, Alicia at [facility] Rehab states that their pharmacist states he cannot be on both. Alicia states they have been giving him whiskey there. [facility] discontinued the Librium. I faxed updated med list to [facility]. Alicia states they will pick him up at 1400. I notified transportation coordinator and his nurse, Chayito. I also told Chayito not to give both the Librium and whiskey, that the doctor has discontinued the Librium. He is going to a skilled bed today at [facility]. His is in the room and agrees with discharge plan. DCP- Discharge Planning Updated by [email or web address]: Sabina Carusobradford on 07/03/18 9:[address] Received order for discharge. He is on 6L NC oxygen. states he takes it off all the time. I informed the nurse that she may need to wean prior to discharge to skilled facility. I called Alicia with [facility] and clinical faxed. She will call me back when accepted. CM will continue to follow and assist with discharge planning/needs. DCP- Discharge Planning Updated by [email or web address]: Nancy Guaman on 07/01/18 7:[address] CM met with patient and regarding dc needs/plans. Spouse states patient will return to [facility] upon discharge. CM contacted August to verify same and she states patient is in a skilled bed at the facility. Patient has a w/c in his room from the facility. CM will fax information when MD is ready to discharge. Nancy Guaman RN CM Coverage Notice Reviewer: [email or web address] - Nancy Guaman Notice Issued Date-Time: 07/02/2018 18:03 Notice Type: IM Admission Notice Notice Delivered To: Patient Relationship to Patient: Self Commercial Collections Specialist Name: Young Dave Delivery Method: - Mansi Days: Prior Verbal Notification: Recipient Understood Notice: Recipient Signature: Med Rec Note Co-signed by Attending: Coverage Notice Comment: Reviewer: [id number] Milton Guaman Notice Issued Date-Time: 07/02/2018 18:03 Notice Type: Patient Choice Letter Notice Delivered To: Patient Relationship to Patient: Self Commercial Collections Specialist Name: Young Dave Delivery Method: - Mansi Days: Prior Verbal Notification: Recipient Understood Notice: Recipient Signature: Med Rec Note Co-signed by Attending: Coverage Notice Comment: Reviewer: [id number] Milton Baptiste Notice Issued Date-Time: 07/03/2018 10:04 Notice Type: IM Discharge Notice Notice Delivered To: Other Relationship to Patient: Spouse Commercial Collections Specialist Name: Gurinder Delivery Method: HAND - Hand Delivered Mansi Days: Prior Verbal Notification: Recipient Understood Notice: Yes Recipient Signature: Yes Med Rec Note Co-signed by Attending: Coverage Notice Comment: IMM explained, signed by , given, copy placed in MR Last DP export: 07/03/18 11:27 a Patient Name: YOUNG DAVE Page [id number] at 0754 All edits/amendments must be made on the electronic document DICTATION DATE: 07/04/18 0754 TEST SPECIALIST: JORDI 07/04/18 0754 RPT#: [id number] DC DATE:07/03/18 STATUS: DIS IN [facility] [address] [place] [address] END OF REPORT
== END 2018-07-03 15:04 | DRG 496 ==
LOC: D.OPS 11:50 → D.MS 17:13 → D.OPS 17:45 → D.PAN 17:45 → D.MS 07-03 15:04
PROVIDERS: Anesthesiology; Family Medicine; ADMIT Orthopaedic Surgery
PROC: 0QW Lower Bones, Revision (ICD-10-PCS; principal; 2018-07-01 09:09)
DX: M96.69 Fracture of other bone following insertion of orthopedic implant, joint prosthesis, or bone plate (principal); F17.213 Nicotine dependence, cigarettes, with withdrawal; Y83.9 Surgical procedure, unspecified as the cause of abnormal reaction of the patient, or of later complication, without mention of misadventure at the time of the procedure; Z72.89 Other problems related to lifestyle; J44.9 Chronic obstructive pulmonary disease, unspecified; I73.9 Peripheral vascular disease, unspecified; I10 Essential (primary) hypertension; F32.9 Major depressive disorder, single episode, unspecified; F41.9 Anxiety disorder, unspecified

== ENCOUNTER → 2018-10-06 08:51 | Outpatient (CLI) | payer MEDICARE, OTHER ==
[2018-06-30 19:07] VITALS: BMI 36.8
== END | disposition home or self-care (01) ==
LOC: D.CT 08:51
PROVIDERS: ATTEND Clinical Nurse Specialist Family Health
DX: R16.0 Hepatomegaly, not elsewhere classified (principal)

== ENCOUNTER 2018-11-24 07:50 | Outpatient (CLI) | payer MEDICARE, OTHER ==
[~2018-11-24] VITALS: Ht 177.8 cm; Wt 100.0 kg
[2018-11-24 08:22] LABS: BASOPHILS 0.3 % (0-2); EOSINOPHILS 2.3 % (0-7); HEMATOCRIT 42.3 % (42.0-54.0); HEMOGLOBIN 15.3 g/dL (13.5-17.5); IMMATURE GRANULOCYTES 0.1 % (0-5); LYMPHOCYTES 30.3 % (15-50); MCH 32.6 pg (26.0-34.0); MCHC 36.2 g/dL (31.0-37.0); MEAN PLATELET VOLUME 9.7 fL (7.4-10.4); MONOCYTES 8.7 % (2-11); NEUTROPHILS 58.3 % (40-80); PLATELET COUNT 165 10x3/uL (130-400); RDW 13.6 % (11.5-14.5); WBC 7.8 10x3/uL (4.8-10.8)
[2018-11-24 08:37] LABS: CALC OSMOLALITY 279 mosm/kg (275-300); CARBON DIOXIDE 28.4 mmol/L (21.0-32.0); CHLORIDE - SERUM 104 mmol/L (98-107); CREATININE - SERUM 0.8 mg/dL (0.6-1.3); GLUCOSE 97 mg/dL (74-106); POTASSIUM - SERUM 3.7 mmol/L (3.5-5.1); SODIUM 140 mmol/L (136-145); UREA NITROGEN 16 mg/dL (7-18); eGFR NON AFRICAN AMERICAN > 90 mL/min (90-120)
[2018-11-24 09:01] LABS: APTT 29.1 SECONDS (22.8-39.4); PROTIME 12.7 SECONDS (11.6-15.0)
[2018-11-24] MEDS ORDERED: LEXAPRO20 MG PO (09:27)
[2018-11-24] MEDS ORDERED: CHRONULAC30 ML (09:28)
[2018-11-24 09:52] VITALS: Ht 177.8 cm; Wt 100.0 kg
--- NOTE | 2018-11-24 10:01 | NUR ---
THE PATIENT DOES NOT REQUIRE 1:1 OBSERVATION BASED ON THE SUICIDAL ASSESSMENT. PROVIDED THE PATIENT WITH THE RESOURCES FOR SUICIDE.
--- NOTE | 2018-11-24 11:05 | NUR ---
REC'D FROM SPECIALS VIA STRETCHER. DRESSING CDI TO RIGHT SIDE. FAMILY AT BEDSIDE. REGULAR TRAY ORDERED FOR PATIENT. ORANGE JUICE BROUGHT TO PATIENT.
--- NOTE | 2018-11-24 11:50 | NUR ---
REGULAR TRAY SERVED TO PATIENT. DRESSING CDI TO RIGHT SIDE. FAMILY AT BEDSIDE.
--- NOTE | 2018-11-24 12:50 | NUR ---
TOLERATED REGULAR DIET. DRESSING CDI. FAMILY AT BEDSIDE.
--- NOTE | 2018-11-24 13:20 | NUR ---
EYES CLOSED. AROUSES TO VERBAL STIMULI. DRESSING CDI.
--- NOTE | 2018-11-24 14:20 | NUR ---
DRESSING CDI. FAMILY AT BEDSIDE. INFORMED PATIENT WILL BE ABLE TO GO HOME ROUND 1505.
--- NOTE | 2018-11-24 15:05 | NUR ---
IV DC'D WITH CATHETER INTACT. WRITTEN AND VERBAL DC INST. GIVEN TO PATIENT. VERBALIZED UNDERSTANDING.
--- NOTE | 2018-11-24 15:10 | NUR ---
DC'D HOME WITH FAMILY VIA PRIVATE VEHICLE. STABLE AT TIME OF DC.
--- NOTE | 2018-11-25 17:18 | HP ---
PATIENT: DANIEL CARREON MEDICAL RECORD: [id number] ACCOUNT: [id number] LOCATION:D.OR : 55 ADMISSION DATE: 11/24/18 PCP: NOLAN BLANCO MD HISTORY AND PHYSICAL EXAMINATION CHIEF COMPLAINT: Rule out cirrhosis. HISTORY OF PRESENT ILLNESS: The patient is to undergo a CT-guided liver biopsy. He has elevated liver function test. He has been referred to me to determine whether he has cirrhosis or not. PAST MEDICAL AND SURGICAL HISTORY: Benign prostatic hypertrophy, hypertension, anxiety, and depression. HOME MEDICATIONS: Please see the nursing list. ALLERGIES: Please see the nursing list. SOCIAL HISTORY: He is a smoker. PHYSICAL EXAMINATION: GENERAL: He appears chronically ill. He does not appear acutely ill. VITAL SIGNS: Reviewed. EARS: External ears appear normal. EYES: Extraocular movements are intact. NECK: Trachea is midline. CHEST: No intercostal retractions. PULMONARY: Nonlabored. No stridor. ABDOMEN: No peritonitis with movement. IMPRESSION: Elevated liver function test. Rule out cirrhosis. PLAN: CT-guided liver biopsy. TRANSINT:[id number] Voice Confirmation ID: [id number] DOCUMENT ID: [id number] PATO ESPINO MD at 1718 CC: [id number] DICTATION DATE: 11/22/181813 HOT WORT SETTLER: 11/22/18 190 DEP CLI 11/24/18 [facility] [address] [place] [address]
== END 2018-11-24 15:10 | disposition home or self-care (01) ==
LOC: D.CT 07:50 → D.SP 08:00 → D.CT 08:00
PROVIDERS: Specialist; ATTEND Surgery
DX: K74.60 Unspecified cirrhosis of liver (principal)

== ENCOUNTER 2019-04-02 08:16 | Emergency (ER) | payer MEDICARE, OTHER ==
[~2019-04-02] VITALS: Ht 177.8 cm; Wt 109.1 kg
[~2019-04-02 08:16] MED LIST changes: +CHRONULAC30 ML; +LEXAPRO20 MG PO
[2019-04-02 08:18] VITALS: Ht 177.8 cm; Wt 109.1 kg
[2019-04-02 09:05] LABS: CALC OSMOLALITY 277 mosm/kg (275-300); CALCIUM 8.2 mg/dL (8.5-10.1); CARBON DIOXIDE 26.7 mmol/L (21.0-32.0); CHLORIDE - SERUM 102 mmol/L (98-107); CREATININE - SERUM 0.6 mg/dL (0.6-1.3); GLUCOSE 95 mg/dL (74-106); POTASSIUM - SERUM 3.5 mmol/L (3.5-5.1); SODIUM 139 mmol/L (136-145); UREA NITROGEN 13 mg/dL (7-18); eGFR NON AFRICAN AMERICAN > 90 mL/min (90-120)
[2019-04-02 09:19] LABS: BASOPHILS 0.4 % (0-2); EOSINOPHILS 0.6 % (0-7); HEMATOCRIT 44.3 % (42.0-54.0); HEMOGLOBIN 15.6 g/dL (13.5-17.5); IMMATURE GRANULOCYTES 0.1 % (0-5); LYMPHOCYTES 25.6 % (15-50); MCHC 35.2 g/dL (31.0-37.0); MCV 99.3 fL (80.0-100.0); MEAN PLATELET VOLUME 9.7 fL (7.4-10.4); MONOCYTES 8.6 % (2-11); NEUTROPHILS 64.7 % (40-80); PLATELET COUNT 172 10x3/uL (130-400); RBC 4.46 10x6/uL (4.20-6.10); RDW 14.5 % (11.5-14.5); WBC 6.8 10x3/uL (4.8-10.8)
[2019-04-02 09:21] LABS: ALBUMIN 3.2 g/dL (3.4-5.0); ALKALINE PHOSPHATASE 108 U/L (46-116); ALT (SGPT) 43 U/L (10-68); BILIRUBIN - TOTAL 0.98 mg/dL (0.2-1.3); CREATINE KINASE 105 UL (21-232); MAGNESIUM - SERUM 1.8 mg/dL (1.8-2.4); PROTEIN - SERUM 7.3 g/dL (6.4-8.2); TROPONIN-I < 0.017 ng/mL (0.000-0.060)
[2019-04-02 09:47] LABS: APTT 33.1 SECONDS (22.8-39.4); INR 1.02 (0.85-1.17); PROTIME 12.9 SECONDS (11.6-15.0)
[2019-04-02] MEDS ORDERED: NORVASC10 MG PO (10:13)
[2019-04-02] MEDS ORDERED: ALBUTEROL SULF8.5 GM INH (10:17)
[2019-04-02 10:45] VITALS: BP 139/78
== END 2019-04-02 10:45 | disposition home or self-care (01) ==
LOC: D.ER 08:16
PROVIDERS: Emergency Medicine
DX: I10 Essential (primary) hypertension (principal); R51 Headache; J45.909 Unspecified asthma, uncomplicated; R42 Dizziness and giddiness; F41.8 Other specified anxiety disorders; I73.9 Peripheral vascular disease, unspecified; I83.93 Asymptomatic varicose veins of bilateral lower extremities; M19.90 Unspecified osteoarthritis, unspecified site; M54.9 Dorsalgia, unspecified; N40.0 Benign prostatic hyperplasia without lower urinary tract symptoms; F17.210 Nicotine dependence, cigarettes, uncomplicated; Z72.89 Other problems related to lifestyle

== ENCOUNTER 2020-10-10 23:18 | Emergency (ER) | payer MEDICARE, OTHER ==
[~2020-10-10 23:18] MED LIST changes: +ALBUTEROL SULF8.5 GM INH; +FUROSEMIDE40 MG PO; +KLOR-CON 1010 MEQ PO; +ZANAFLEX4 MG PO; +[UNRECOGNIZED DRUG - MIXTURE]
[2020-10-10 23:33] VITALS: Ht 177.8 cm
[2020-10-11 00:20] LABS: BASOPHILS 1.2 % (0-2); EOSINOPHILS 1.1 % (0-7); HEMATOCRIT 40.5 % (42.0-54.0); LYMPHOCYTES 41.6 % (15-50); MCH 37.7 pg (26.0-34.0); MCHC 34.6 g/dL (31.0-37.0); MCV 109.1 fL (80.0-100.0); MEAN PLATELET VOLUME 6.5 fL (7.4-10.4); NEUTROPHILS 46.1 % (40-80); RBC 3.71 10x6/uL (4.20-6.10); RDW 13.1 % (11.5-14.5); WBC 6.4 10x3/uL (4.8-10.8)
[2020-10-11 00:28] LABS: PLATELET COUNT 283 10x3/uL (130-400)
[2020-10-11 00:38] LABS: CALC OSMOLALITY 288 mosm/kg (275-300); CALCIUM 8.6 mg/dL (8.5-10.1); CARBON DIOXIDE 30.4 mmol/L (21.0-32.0); CHLORIDE - SERUM 103 mmol/L (98-107); CREATININE - SERUM 0.9 mg/dL (0.6-1.3); GLUCOSE 106 mg/dL (74-106); POTASSIUM - SERUM 3.1 mmol/L (3.5-5.1); SODIUM 145 mmol/L (136-145); UREA NITROGEN 13 mg/dL (7-18); eGFR NON AFRICAN AMERICAN 90 mL/min (90-120)
[2020-10-11] MEDS ORDERED: AVODART0.5 MG PO (00:55)
[2020-10-11] MEDS ORDERED: VITAMIN D21250 MC1 PO (00:55)
[2020-10-11] MEDS ORDERED: FLOMAX0.4 MG PO (00:56)
[2020-10-11 01:06] LABS: ALBUMIN 3.3 g/dL (3.4-5.0); ALKALINE PHOSPHATASE 88 U/L (30-120); ALT (SGPT) 43 U/L (10-68); PROTEIN - SERUM 7.5 g/dL (6.4-8.2)
[2020-10-11 05:37] VITALS: BP 108/51
== END 2020-10-11 05:07 | disposition home or self-care (01) ==
LOC: D.ER 23:18
PROVIDERS: Student in an Organized Health Care Education/Training Program
DX: S09.90XA Unspecified injury of head, initial encounter (principal); W19.XXXA Unspecified fall, initial encounter; Y93.9 Activity, unspecified; Y92.9 Unspecified place or not applicable; R51.9 Headache, unspecified; I10 Essential (primary) hypertension; E78.5 Hyperlipidemia, unspecified; K21.9 Gastro-esophageal reflux disease without esophagitis

== ENCOUNTER 2020-10-27 14:53 | Inpatient (IN) | payer MEDICARE, OTHER ==
[~2020-10-27] VITALS: Ht 177.8 cm; Wt 107.5 kg
[~2020-10-27 14:53] MED LIST changes: +AVODART0.5 MG PO; +VITAMIN D21250 MC1 PO; -[UNRECOGNIZED DRUG - MIXTURE]; +[UNRECOGNIZED DRUG - MIXTURE] PO
[2020-10-27] MEDS ORDERED: K-TAB10 MEQ PO (16:30)
[2020-10-27] MEDS ORDERED: KLONOPIN0.5 MG PO (16:31)
[2020-10-27 16:34] VITALS: BP 111/65; BMI 34.0
--- NOTE | 2020-10-27 19:46 | NUR ---
AWAKE AND ALERT. RESTING IN BED WITH RESPRIATIONS UNLABORED. MILD EXPRESSIVE APHASIA. 4+ EDEMA IN BILATERAL FEET. NO ACUTE DISTRESS NOTED. CALL LIGHT IN REACH.
[2020-10-27 20:30] VITALS: BP 113/60
[2020-10-28 05:18] LABS: BASOPHILS 0.7 % (0-2); EOSINOPHILS 1.2 % (0-7); HEMATOCRIT 33.2 % (42.0-54.0); HEMOGLOBIN 11.6 g/dL (13.5-17.5); LYMPHOCYTES 30.1 % (15-50); MCH 38.5 pg (26.0-34.0); MCHC 34.9 g/dL (31.0-37.0); MCV 110.2 fL (80.0-100.0); MEAN PLATELET VOLUME 7.5 fL (7.4-10.4); MONOCYTES 10.8 % (2-11); NEUTROPHILS 57.2 % (40-80); RBC 3.01 10x6/uL (4.20-6.10); RDW 13.9 % (11.5-14.5)
[2020-10-28 05:27] LABS: PLATELET COUNT 121 10x3/uL (130-400)
[2020-10-28 05:30] LABS: ANION GAP 11.1 mmol/L (8-16); CALCIUM 7.5 mg/dL (8.5-10.1); CARBON DIOXIDE 29.9 mmol/L (21.0-32.0); CREATININE - SERUM 1.1 mg/dL (0.6-1.3)
--- NOTE | 2020-10-28 06:30 | NUR ---
QUEIT HOURS. NO ACUTE CHANGES IN CONDITION THIS SHIFT. RESTING IN BED WITH NO DISTRESS NOTED.
--- NOTE | 2020-10-28 08:00 | NUR ---
SHIFT ASSMT COMPLETED,CL IN REACH.SITTING UP EATING BREAKFAST,
[2020-10-28 08:40] VITALS: BP 98/48
[2020-10-28 14:11] VITALS: Ht 177.8 cm; Wt 107.5 kg
--- NOTE | 2020-10-28 20:00 | NUR ---
AWAKE AND ALERT. RESTING IN BED WITH RESPIRATIONS UNLABORED. NO DISTRESS NOTED. CALL LIGHT IN REACH.
[2020-10-28 20:25] VITALS: BP 115/60
--- NOTE | 2020-10-29 04:55 | NUR ---
QUIET HOURS. NO ACUTE CHANGES IN CONDITION THIS SHIFT. RESTING IN BED WITH NO DISTRESS NOTED. CALL LIGHT IN REACH.
[2020-10-29 07:34] LABS: EOSINOPHILS 1.5 % (0-7); HEMATOCRIT 34.1 % (42.0-54.0); HEMOGLOBIN 11.9 g/dL (13.5-17.5); MCH 38.7 pg (26.0-34.0); MCHC 34.9 g/dL (31.0-37.0); MEAN PLATELET VOLUME 7.6 fL (7.4-10.4); MONOCYTES 11.1 % (2-11); NEUTROPHILS 55.4 % (40-80); PLATELET COUNT 136 10x3/uL (130-400); RBC 3.08 10x6/uL (4.20-6.10); RDW 13.8 % (11.5-14.5); WBC 4.1 10x3/uL (4.8-10.8)
[2020-10-29 07:46] VITALS: BP 101/65
--- NOTE | 2020-10-29 08:00 | NUR ---
SHIFT ASSMT COMPLETED.
[2020-10-29 08:26] LABS: CALCIUM 7.8 mg/dL (8.5-10.1); CARBON DIOXIDE 29.7 mmol/L (21.0-32.0); CHLORIDE - SERUM 103 mmol/L (98-107); GLUCOSE 104 mg/dL (74-106); SODIUM 140 mmol/L (136-145)
[2020-10-29 08:27] LABS: CALC OSMOLALITY 278 mosm/kg (275-300); CREATININE - SERUM 0.8 mg/dL (0.6-1.3); UREA NITROGEN 13 mg/dL (7-18); eGFR NON AFRICAN AMERICAN > 90 mL/min (90-120)
--- NOTE | 2020-10-29 15:41 | NUR ---
CARE TEAM MEETING: PATIENT IS NEW TO UNIT AND WILL BE RA AT NEXT MEETING. AT DISCHARGE PATIENT PLANS ON GOING TO [facility]. WILL CONTINUE TO FOLLOW WITH PATIENT.
--- NOTE | 2020-10-29 20:03 | NUR ---
RESTING IN BED, NO DISTRESS NOTED, ALERT AND O,
[2020-10-29 20:45] VITALS: BP 107/61
--- NOTE | 2020-10-29 22:00 | NUR ---
pt signed bed waiver, cont to monitor safety
[2020-10-30 08:39] VITALS: BP 119/64
--- NOTE | 2020-10-30 19:00 | NUR ---
PT IN BED WATCHING TV, A&O, NO NEEDS NOTED, FLUIDS/CL WITHIN REACH,
[2020-10-30 21:35] VITALS: BP 115/58
[2020-10-31 08:00] VITALS: BP 128/67
--- NOTE | 2020-10-31 18:00 | NUR ---
ASSESSMENT COMPLETED EARLIER THIS SHIFT. PATIENT HAS BEEN UP IN MOST OF DAY & PARTICIPATED IN THERAPY. HAS HAD NO VERBALIZED COMPLAINTS THIS SHIFT. CONTINUE TO MONITOR, CONT CURRENT PLAN OF CARE.
--- NOTE | 2020-10-31 19:33 | NUR ---
AWAKE AND ALERT. RESTING IN BED WITH RESPIRATIONS UNLABORED. NO DISTRESS NOTED. CALL LIGHT IN REACH.
[2020-10-31 19:55] VITALS: BP 133/70
--- NOTE | 2020-10-31 20:00 | NUR ---
AWAKE AND ALERT. RESPIRATION UNLABORED. NO DISTRESS NOTED. CALL LIGHT IN REACH.
--- NOTE | 2020-10-31 21:00 | NUR ---
WHILE I WAS IN ROOM PASSING MEDICATIONS TO BOTH PATIENTS IN THIS ROOM, THIS PATIENT HEARD ME TELL PATIENT I WAS GOING TO GIVE HIS MEDICATIONS INCLUDING INSULIN AND THIS PATIENT SAID, "IF YOUVE GOT A SQUARE NEEDLE I'LL GIVEN IT TO HIM IN HIS NUTS!" THIS PATIENT ALSO SAID "DONT BELIEVE ANYTHING HE (PATIENT IN B BED) HAS TO SAY HE IS A LIAR!" THEN THIS PATIENT LAUGHS. I ASK PAITENT NOT TO SAY THINGS THAT ARE MEAN AND VULGAR. HE STATED "OH IM JUST JOKING" WILL MONITOR. GUIDE RAIL CLEANER REPORTS HE ALSO TOLD PATIENT IN B BED EARLIER THIS AFTERNOON "ILL COME OVER THERE AND KICK YOUR ASS." HE TOLD GUIDE RAIL CLEANER HE WAS JOKING WHEN SHE SAIO "PLEASE DONT SAY THINGS LIKE THAT" WILL CONTINUE TO MONITOR BEHAVIOR.
--- NOTE | 2020-11-01 05:02 | NUR ---
RESTING IN BED QUIETLY. RESPIRATIONS UNLABORED. NO DISTRESS NOTED. CALL LIGHT IN REACH.
[2020-11-01 07:00] VITALS: BP 139/79
--- NOTE | 2020-11-01 08:00 | NUR ---
SHIFT ASSMT COMPLETED.CL IN REACH.
[2020-11-01 19:00] VITALS: BP 128/72
--- NOTE | 2020-11-01 20:09 | NUR ---
UP IN WC, NO DISTRESS NOTED, CONT TO MONITOR SAFETY AND PAIN
[2020-11-02 07:00] VITALS: BP 110/59
--- NOTE | 2020-11-02 13:16 | RHP ---
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 HISTORY OF PRESENT ILLNESS: The patient is a 65-year-old gentleman with a history of BPH, essential hypertension, hypothyroidism, alcoholism, vitamin D deficiency, peripheral vascular disease, mild dementia, osteopenia, chronic back pain, obesity and depression. He apparently had a rather sudden onset of weakness approximately 1-2 months ago. He has been more dependent on his walker for ambulation, starting to have falls on a regular basis. He has got increased fatigue and dragging of his feet. His functional mobility continues to decrease to the point that he is now wheelchair bound and mod to max assist with his functional mobility and ADLs, progressing to the point that his is very exhausted. She is also helping raise her grandson. He has been complaining of dizziness when standing. His reports he is having up to 13 falls a week, 3 over the past weekend. He smokes 1-1/2 packs of cigarettes a day. He vapes. He is a daily whiskey user. His says he has got a small bottle of whiskey that he drinks t.i.d. to keep him from going through withdrawals. He has been having problems with his blood pressure. He has got multiple bruising and skin tears. He has exhibited expressive aphasia . His states he sometimes has a hard time enunciating. MRI of his brain was actually negative for CVA. He has got 2+ edema to his bilateral lower extremities. He is going to need evaluation for PT, OT and speech therapy and rehabilitation. He is going to require intensive therapy, hopefully to get him back to her level of functioning or better than when he came here with. COMORBIDITIES: Include alcohol abuse, allergic rhinitis, acute mental status change, anxiety, BPH, cognitive deficits, confusion, decreased mobility, decrease in physical function, depression, difficulty walking, expressive aphasia, fatigue, left-sided weakness, obesity, peripheral vascular disease, recurrent falls, slurred speech, vitamin D deficiency, and weakness. PAST MEDICAL HISTORY: Significant for essential hypertension, hypothyroidism, mixed hyperlipidemia, alcoholism, vitamin D deficiency, he has had a malignant tumor of the bladder, peripheral vascular disease, dementia, anxiety, osteopenia, chronic back pain, obesity, depression. PAST SURGICAL HISTORY: Includes a colonoscopy. He has had left foot toe surgery. He has had an umbilical hernia repair. ALLERGIES: MORPHINE. CURRENT MEDICATIONS: Include Librium, he is taking daily. He is on Klonopin 0.5 mg daily. He is on Flomax 0.4 mg daily, Avodart 0.5 mg daily, furosemide 40 mg daily, Cymbalta 60 mg daily, Lexapro 20 mg daily, amlodipine 10 mg daily, potassium 10 mEq b.i.d., metoprolol 50 mg b.i.d., tizanidine 4 mg at bedtime, and he is on a Nicoderm patch. HABITS: Does have a history of alcohol and tobacco use. HISTORY AND PHYSICAL [id number] DANIEL CARREON FAMILY HISTORY: Noncontributory. SOCIAL HISTORY: The patient hopes to return back home with his to get back to his prior level of functioning. REVIEW OF SYSTEMS: GENERAL: Does complain of weakness and fatigue. HEENT: Denies cold, cough, or congestion. CARDIOVASCULAR: Denies any chest pain. PHYSICAL EXAMINATION: VITAL SIGNS: Stable, afebrile. GENERAL: A much older than stated age white gentleman, in no acute distress upon exam. HEENT: Normocephalic and atraumatic. Mucosa moist. NECK: Supple. No lymphadenopathy. LUNGS: Clear in upper shi. No wheezing or rales. HEART: Regular rhythm. No murmurs, rubs or gallops. ABDOMEN: Soft, protuberant does have noted changes with spider hemangiomas. EXTREMITIES: Does have multiple skin tears and bruises. NEUROLOGIC: He has got diffuse weakness and slow to mentation. LABORATORY DATA: His white count is 5000, H&H of 11.6 and 33.2, his MCV is elevated as expected at 110.2, platelet count is 121. Sodium 140, potassium 3.0, BUN and creatinine of 18 and 1.1, and blood sugar was noted to be 107. ASSESSMENT: This is a 65-year-old gentleman admitted to the rehab with a working diagnosis of debility, probably secondary to alcoholic myopathy. The patient has potential to make improvement. We instituted the following multidisciplinary therapies including, not limited to physical, occupational, respiratory, speech, nutritional services, prosthetics and orthotics. Given his complex medical condition and risks for more complications, rehabilitation services cannot be provided at a low level of care such a alf facility. PLAN: 1. [facility] to include the following disciplines; A. Physical therapy to improve gait, all transfer skills and bed mobility to a modified independent level. B. Occupational therapy to improve activities of daily living. C. Case management to help with discharge planning and placement options. D. Nutrition to assist with nutritional needs. E. Rehabilitation nursing to assist in monitoring the patient's underlying medical conditions and to assist with any type of bowel or bladder management. 2. The patient's current medications will be continued. I am going to replace his potassium. I am going to check a B12 level and also a vitamin D and replace as needed. 3. We will go ahead and add a small dose of whiskey to his diet to help with prevention of DVTs and I will see again in the a.m. Discuss with care team tomorrow. TRANSINT:[id number] Voice Confirmation ID: [id number] DOCUMENT ID: [id number] HISTORY AND PHYSICAL [id number] DANIEL CARREON notes whether there has been none or any medical/functional change since admission: - No change since preadmission screen. JUAN DIEGO attests patient continues to be appropriate for IRF: - Continues to be appropriate. NOLAN BLANCO MD at 1316 CC: [id number] DICTATION DATE: 10/28/20 1020 ESTATE ADMINISTRATOR: 10/28/20 1221 ADM IN [place] [id number] [place] [address]
[2020-11-02 19:00] VITALS: BP 135/81
--- NOTE | 2020-11-02 22:17 | NUR ---
RESTING IN BED, NO DISTRESS NOTED, TAKES PO MEDS WITH EASE, CONT TO MONITOR SAFETY
--- NOTE | 2020-11-03 07:35 | NUR ---
PATIENT IS ALERT AND ORIENT. SITTING UP IN WHEELCHAIR IN HALLWAY. VOICES NO NEEDS AT THIS TIME. PATIENT WANTING TO GO HOME. WILL CONTINUE WITH PLAN OF CARE
[2020-11-03 07:46] LABS: EOSINOPHILS 1.4 % (0-7); HEMATOCRIT 36.8 % (42.0-54.0); HEMOGLOBIN 12.6 g/dL (13.5-17.5); LYMPHOCYTES 19.4 % (15-50); MCH 37.7 pg (26.0-34.0); MCHC 34.1 g/dL (31.0-37.0); MCV 110.4 fL (80.0-100.0); MEAN PLATELET VOLUME 7.4 fL (7.4-10.4); MONOCYTES 11.2 % (2-11); RBC 3.34 10x6/uL (4.20-6.10); RDW 13.3 % (11.5-14.5); WBC 6.3 10x3/uL (4.8-10.8)
[2020-11-03 07:54] LABS: PLATELET COUNT 215 10x3/uL (130-400)
[2020-11-03 07:58] LABS: CALC OSMOLALITY 276 mosm/kg (275-300); CALCIUM 8.9 mg/dL (8.5-10.1); CARBON DIOXIDE 24.2 mmol/L (21.0-32.0); CHLORIDE - SERUM 105 mmol/L (98-107); CREATININE - SERUM 0.9 mg/dL (0.6-1.3); GLUCOSE 107 mg/dL (74-106); POTASSIUM - SERUM 3.9 mmol/L (3.5-5.1); SODIUM 138 mmol/L (136-145); UREA NITROGEN 15 mg/dL (7-18); eGFR NON AFRICAN AMERICAN 90 mL/min (90-120)
[2020-11-03 08:22] VITALS: BP 129/63
--- NOTE | 2020-11-03 09:45 | NUR ---
SPOKE WITH PATIENT THIS AM AND HER WOULD LIKE TO DC HOME . WILL CONTINUE TO FOLLOW WITH PATIENT .
--- NOTE | 2020-11-03 09:51 | NUR ---
PATIENT IN REHAB ROOM WORKING WITH OCCUPATIONAL THERAPIST. DENIES ANY PAIN/DISC AT THIS TIME.
--- NOTE | 2020-11-03 13:26 | NUR ---
Nutrition Re-Assessment Diet: Regular PO intake: 100% x last 9 meals Last BM: 10/31/20 Wt: 237# (10/28/20) Meds noted: lasix, whiskey 30mL BID, k-dur Labs noted: Glu 107(H) Patient remains at low nutrition risk at this time. Please consult RD if further MNT is medically indicated and/or desired by MD. RD will continue to monitor for nutrition risk factors DHS. RD will follow-up within 7 days.
--- NOTE | 2020-11-03 17:00 | NUR ---
DR. BLANCO INTO SEE PATIENT.
--- NOTE | 2020-11-03 18:34 | NUR ---
I have reviewed this patient and I concur with the Shift Assessment completed by the Licensed Practical Nurse today this shift.
--- NOTE | 2020-11-03 19:25 | NUR ---
AWAKE AND ALERT. RESTING IN BED TALKING ON PHONE. NO DISTRESS NOTED. CALL LIGHT IN REACH.
[2020-11-03 20:51] VITALS: BP 150/63
[2020-11-04 08:23] VITALS: BP 134/63
--- NOTE | 2020-11-04 23:04 | NUR ---
AWAKE AND ALERT. SITTING IN WHEELCHAIR. RESPIRATIONS UNLABORED. NO DISTRESS NOTED. CALL LIGHT IN REACH.
--- NOTE | 2020-11-05 05:08 | NUR ---
QUIET HOURS. NO ACUTE CHANGES IN CONDITION THIS SHIFT. RESTING IN BED WITH NO DISTRESS NOTED.
[2020-11-05 07:32] LABS: BASOPHILS 0.8 % (0-2); EOSINOPHILS 1.3 % (0-7); HEMATOCRIT 38.3 % (42.0-54.0); HEMOGLOBIN 13.1 g/dL (13.5-17.5); LYMPHOCYTES 20.3 % (15-50); MCH 37.7 pg (26.0-34.0); MCHC 34.2 g/dL (31.0-37.0); MCV 110.3 fL (80.0-100.0); MEAN PLATELET VOLUME 7.6 fL (7.4-10.4); MONOCYTES 9.1 % (2-11); NEUTROPHILS 68.5 % (40-80); PLATELET COUNT 243 10x3/uL (130-400); RBC 3.47 10x6/uL (4.20-6.10); RDW 13.3 % (11.5-14.5); WBC 7.1 10x3/uL (4.8-10.8)
[2020-11-05 07:50] LABS: CALC OSMOLALITY 279 mosm/kg (275-300); CALCIUM 8.8 mg/dL (8.5-10.1); CARBON DIOXIDE 26.6 mmol/L (21.0-32.0); CHLORIDE - SERUM 105 mmol/L (98-107); CREATININE - SERUM 0.9 mg/dL (0.6-1.3); GLUCOSE 90 mg/dL (74-106); POTASSIUM - SERUM 3.6 mmol/L (3.5-5.1); SODIUM 140 mmol/L (136-145); UREA NITROGEN 14 mg/dL (7-18); eGFR NON AFRICAN AMERICAN 90 mL/min (90-120)
--- NOTE | 2020-11-05 08:00 | NUR ---
SHIFT ASSMT COMPLETED.CL IN REACH. AWAKE EATING BREAKFAST.PLAN TO DISCHARGE TO [facility].
[2020-11-05 08:06] VITALS: BP 125/65
[2020-11-05] MEDS ORDERED: LIBRAX PO (08:55)
[2020-11-05] MEDS ORDERED: NICODERM CQ1 EAC2 TRANSDERM (08:55)
--- NOTE | 2020-11-05 09:23 | NUR ---
PATIENT DISCHARGING TO [facility] VIA PRIVATE CAR. MIKA SIGNED, IMM SERVED AND EXPLAINED, ONE GIVEN TO PATIENT AND ONE FILED IN CHART. AN APPOINTMENT WITH DR. BLANCO WILL BE MADE AT TIME OF DISCHARGE FROM FACILITY. NO COMPARE DATA REVIEWED PATIENT HAD BEEN A CLIENT OF [facility] . DISCHARGE INSTUCTIONS FAXED TO PCP, SNF AND REPORT CALLED TO [facility]. KARRIE RETURNED PATIENT IS A NON-PASRR.
--- NOTE | 2020-11-05 12:00 | NUR ---
REVIEWED DISCHARGE.WAITING ON TRANSPORTATION.
--- NOTE | 2020-11-05 13:50 | NUR ---
DISCHARGED IN CARE OF TO TRANSPORT TO [facility].
== END 2020-11-05 14:00 | DRG 948 ==
LOC: D.REHAB 14:53
PROVIDERS: ADMIT Emergency Medicine; ATTEND Emergency Medicine
DX: R53.81 Other malaise (principal); G72.1 Alcoholic myopathy; R47.01 Aphasia; F10.10 Alcohol abuse, uncomplicated; J30.9 Allergic rhinitis, unspecified; N40.0 Benign prostatic hyperplasia without lower urinary tract symptoms; F41.9 Anxiety disorder, unspecified; R41.89 Other symptoms and signs involving cognitive functions and awareness; F32.9 Major depressive disorder, single episode, unspecified; R26.2 Difficulty in walking, not elsewhere classified; E66.9 Obesity, unspecified; I73.9 Peripheral vascular disease, unspecified; E55.9 Vitamin D deficiency, unspecified; R53.1 Weakness; R47.81 Slurred speech; R41.82 Altered mental status, unspecified; R53.83 Other fatigue; I10 Essential (primary) hypertension; E03.9 Hypothyroidism, unspecified; E78.5 Hyperlipidemia, unspecified; G89.29 Other chronic pain; Z68.34 Body mass index [BMI] 34.0-34.9, adult